=== PATIENT | female | born 1935 | race Caucasian/White ===

== ENCOUNTER → 2017-12-03 11:37 | Outpatient (CLI) | payer MEDICARE, SELFPAY ==
[2017-12-03 14:27] LABS: Absolute Lymphocyte Count 2.28 X10^3/ul (0.83-4.51); Absolute Neutrophil Count 3.3 X10^3/uL (2.0-7.7); Basophil# 0.08 X10^3/uL; Basophil% 1.2 % (0-1); Eosinophils% 3.1 % (0-5); Hematocrit 42.2 % (37-47); Hemoglobin 13.7 g/dl (12.0-15.0); Lymphocyte # 2.28 X10^3/ul (4.0); Lymphocyte % 35.5 % (19-41); Mean Corp Hgb Conc 32.5 g/gl (32-36); Mean Corpuscular Hgb 32.4 pg (27.0-32.0); Mean Corpuscular Volume 99.8 fL (81-99); Mean Platelet Vol. 9.9 fl (6.2-12.0); Monocyte# 0.52 X10^3/uL; Monocyte% 8.1 % (0-10); Neutrophil # 3.33 X10^3/uL (2.7-7.7); Neutrophil % 51.9 % (47-70); Platelet Count 254 K/mm3 (150-450); RBC Distribution Width CV 12.1 % (11.6-14.6); RBC Distribution Width SD 44.2 fl (35.1-43.9); Red Blood Count 4.23 M/mm3 (4.2-5.4); White Blood Count 6.4 K/mm3 (4.4-11.0)
[2017-12-03 14:28] LABS: POSITIVE COUNT NO; POSITIVE DIFFERENTIAL NO; POSITIVE MORPHOLOGY NO
[2017-12-03 14:40] LABS: Vitamin D,25 Hydroxy 25.4 ng/mL (29.95-100.01)
[2017-12-03 14:46] LABS: ALB/GLOB Ratio 1.2 RATIO (0.9-2.4); AST(SGOT) 23 U/L (15-37); Alanine Aminotransfer ALT/SGPT 23 U/L (13-56); Albumin, Serum 3.9 g/dL (3.2-5.0); Alkaline Phosphatase 81 U/L (45-117); Anion Gap 6 (5-15); BUN 18 mg/dL (7-18); BUN/Creat Ratio 19.2 RATIO (10-20); Calcium,Total 8.6 mg/dL (8.5-10.1); Chloride 107 mmol/L (98-107); Cholesterol 257 mg/dL (200); Creatinine, Serum 0.94 mg/dL (0.55-1.02); EST Glomerular Filtration Rate 61 mL/min (>60); Est Glom Filt Rate - Afr Amer 74 mL/min (>60); Globulin 3.3 g/dL (2.2-4.2); Glucose 89 mg/dL (74-106); High Density Lipoprotein 67 mg/dL; Potassium 4.3 mmol/L (3.5-5.1); Protein, Total 7.2 g/dL (6.4-8.2); Sodium Level 138 mmol/L (136-145); Thyroid Stim Hormone (TSH) 1.36 uIU/mL (0.358-3.74); Triglycerides 155 mg/dL; Very Low Density Lipoprotein 31 mg/dL (5-40)
== END ==
PROVIDERS: Family Provider Family Medicine; PCP Family Medicine; Visit Provider Family Medicine
DX: E78.5 Hyperlipidemia, unspecified (principal); M85.80 Other specified disorders of bone density and structure, unspecified site; F32.9 Major depressive disorder, single episode, unspecified
CPT/HCPCS: 36415; 80053; 80061; 82306; 84443; 85025

== ENCOUNTER 2018-03-15 11:30 | Outpatient (RCR) | payer MEDICARE, SELFPAY ==
--- NOTE | 2018-03-02 11:31 | HP.PTEVAL_ITS ---
Patient's Visit Information DANYELLE ZULUAGA is a 82 year old F referred to Physical Therapy by Lelo Stark MD with a diagnosis of gait instability. Date of Evaluation: 03/02/18 Physical Therapist: Soila Reilly - Visit Plan Frequency: 2x /Week Duration: 6 Weeks Plan: 2X/ week 4-6 weeks for testing on the NeuroCOm, high level functional balance such as walking with head turns, curb steps, quick turns, LE strengthening, stretching of gastroc - Subjective Subjective: Pt reports that just lost her balance and stumbled and it was hard to get up. On she stumbled on a piece of kyle and had a broken foot and some sprained ribs. She has a fear of falling. She does not walk well cause she always has this fear that she is going to fall. It is ok to walk in parking lots and she is fearful and then legs dont work so well. She does not use a cane. She feels like her legs are weak. She is able to get out of the chair without arms with some difficulty. SHe can;t get out of a soft chair without the use of her arms. No dizziness. She has no anxiety in general. She likes to go shopping, movies and out to eat for fun. She still does things and still drives. Does have basement stairs with a railing to do laundry. - Objective Gait: walks with decrease heel to toe gait pattern, stiff knees, and wider VAL. LE MMT: B hip flex 4-/5, B hip abd 4-/5, B knee ext 4-/5, B knee flex 3+/ 5. Tight B HS and gastroc B. FGA 20/30. Able to get up out of a chair without the arms with some effort. Curb step up...hesitation and needed min A. Stairs: up and down recip with a rail (some hesitation descending the steps) - Balance Scores Functional Gait Assessment Score: 20 % Disability: 33.3400 - Goals Goal 1:: I HEP Goal Time Frame: 2 Weeks Goal 2:: Test Pt on the NeuroCom Goal Time Frame: 2 Weeks Goal 3:: Increase LE strength by 1/2 muscle grade (at time of eval: LE MMT: B hip flex 4-/5, B hip abd 4-/5, B knee ext 4-/5, B knee flex 3+/5) Goal Time Frame: 4-6 Weeks Goal 4:: Increase FGA by 5 points to 25 Goal Time Frame: 4-6 Weeks - Rehabilitation Potential Rehabilitation Potential: Good - Anticipated Interventions Patient/Client Instruction: Educate patient on: Condition, Plan of Care For the Purpose of:: To increase ROM, To improve muscle performance and motor function, To improve ability to perform ADL's, To increase tolerance to activity /condition/position, To improve gait and locomotor functions, To increase flexibility/ROM, To improve balance, To improve safety with gait Therapeutic Exercise to Include: Strength training, Balance training, Postural training, Flexibilty training, Gait and locomotor training, via Neurocom Balance Mas, Passive ROM For the Purpose of:: To increase ROM, To improve nutrient delivery to tissue, To improve muscle performance and motor function, To improve ability to perform ADL's, To increase tolerance to activity/condition/position, To improve ability of physical actions for home/community/work/leisure, To improve gait and locomotor functions, To improve health of tissue, To decrease soft tissue restriction, To increase flexibility/ROM, To improve balance, To improve safety with gait Functional Training to Include: Gait training For the Purpose of:: To improve gait and locomotor functions, To improve balance , To improve safety with gait Thank you for the opportunity to evaluate your patient. For Medicare and Medicare HMO plans, please review the plan of care and approve it. It will need to be FAXED BACK to us at [phone] for Medicare purposes. Please let me know if there are questions or concerns regarding this plan of care. Physician Signature: Date:
--- NOTE | 2018-03-11 10:49 | HP.PTCOM ---
PT Communication Note 03/11/[address] Lelo Stark MD , Thank you for the referral of Michaela Srivastava to our clinic. She was tested on our IsoPlexisom Balance Machine today and enclosed are her test results. Overall she did very well. On the Sensory Organization (SOT) Test she had good use of her somatosensory system and visual system. She had poor use of her vestibular system to help her maintain her balance. Her center of gravity alignment was normal as was her strategy analysis of ankle dominance. On the Motor Control Test (MCT) her overall reaction time was within normal limits. Her Limits of stability on the Limits of Stability Test (LOS) was also within normal limits. At this point in time we will see the pt 1X/ week for 2-3 weeks to work on the vestibular inputs as well as give a HEP for LE strengthening. Sincerely, Soila Reilly Contact Information
--- NOTE | 2018-03-11 10:53 | HP.PTCOM_ITS ---
PT Communication Note 03/11/[address] Lelo Stark MD , Thank you for the referral of Michaela Srivastava to our clinic. She was tested on our IMASTEom Balance Machine today and enclosed are her test results. Overall she did very well. On the Sensory Organization (SOT) Test she had good use of her somatosensory system and visual system. She had poor use of her vestibular system to help her maintain her balance. Her center of gravity alignment was normal as was her strategy analysis of ankle dominance. On the Motor Control Test (MCT) her overall reaction time was within normal limits. Her Limits of stability on the Limits of Stability Test (LOS) was also within normal limits. At this point in time we will see the pt 1X/ week for 2-3 weeks to work on the vestibular inputs as well as give a HEP for LE strengthening. Sincerely, Soila Reilly Contact Information
--- NOTE | 2018-03-15 12:05 | HP.PTDCSUM ---
HP - PT D/C Summary It has been my pleasure to treat DANYELLE ZULUAGA under orders from Leol Stark MD, for the diagnosis of gait instability for a total of 4 visit(s). Discharge Date: Please see the following information for a summary of their discharge status. - Subjective Subjective: Pt reports that she does have a fear of falling and gets nervouse with curb steps and grades - Objective Objective/Function: Pt felt she could raise her toes a lot easier after slant board and step stretch. Pt did not have any LOB on grades or curb steps but did have some hesitency - Goals Goal 1:: I HEP Goal 2:: Test Pt on the NeuroCom Goal 3:: Increase LE strength by 1/2 muscle grade (at time of eval: LE MMT: B hip flex 4-/5, B hip abd 4-/5, B knee ext 4-/5, B knee flex 3+/5) Goal 4:: Increase FGA by 5 points to 25 - Plan Plan: 1X/ week for 2 weeks for HEP for LE strengthening and training in clinic for vestibular inputs, curb steps, walking with head turns etc. - D/C Information If there are questions or concerns regarding this patient's physical therapy, please feel free to call me at [phone]. Thank you for the referral of this patient. Sincerely, Soila Reilly
== END 2018-03-15 19:00 | disposition home or self-care (01) ==
LOC: PT 11:30
PROVIDERS: Family Provider Family Medicine; PCP Family Medicine; Visit Provider Family Medicine
DX: R26.9 Unspecified abnormalities of gait and mobility (principal)
CPT/HCPCS: 97110; 97161; 97750

== ENCOUNTER → 2018-05-24 10:53 | Outpatient (CLI) | payer MEDICARE, SELFPAY ==
--- NOTE | 2018-05-24 10:59 | BD_ITS ---
STUDY: DUAL ENERGY X-RAY ABSORPTIOMETRY / DXA REASON FOR EXAM: Female, 82 years old. The patient is postmenopausal. Loss of height. TECHNIQUE: Bone Mineral Density (BMD) measurements of lumbar spine and bilateral hips were obtained. COMPARISON: Comparison is made with prior study dated September 01, 2011. FINDINGS: Lumbar Spine (L1-L4): g/cm2 (1.026) / T-score (-1.3) / Z-score (0.6) Findings are suggestive of osteopenia with a moderate fracture risk. Left Femur Total: g/cm2 (0.802) / T-score (-1.6) / Z-score (0.4) Left Femoral Neck: g/cm2 (0.690) / T-score (-2.5) / Z-score (-0.3) Right Femur Total: g/cm2 (0.807) / T-score (-1.6) / Z-score (0.4) Right Femoral Neck: g/cm2 (0.715) / T-score (-2.3) / Z-score (0.2) The T-Scores on the most recent prior examination were: Lumbar Spine (L1-L4): There has been worsening of bone density since the previous examination. Left Femur Total: which represents a worsening of 0.9%. Right Femur Total: which represents a worsening of 3.1%. BD/Dexa Bone Density Study IMPRESSION: The patient is considered osteopenic as outlined below according to World Carlos Organization (WHO) criteria with a moderate fracture risk. There has been worsening of bone density since the previous examination. Reference Information: The T-score is the number of standard deviations above or below the standard which is normal for young adults at their peak bone mineral density. The World Health Organization (WHO) interprets the T-scores as follows: Above -1 Normal bone density Between -1 and -2.5 Osteopenia Equal to / or below -2.5 Osteoporosis As a practical clinical guideline, osteopenia may be graded as follows: Mild -1 through -1.5 Moderate -1.6 through -2.0 Severe -2.1 through -2.4 The Z-score is the number of standard deviations above or below age-matched controls. A Z-score of less than -1.5 would be considered abnormal. References: 1. NIH Osteoporosis and Related Bone Diseases http://www.osteo.org 2. International Society for Clinical Densitometry http://www.iscd.org 3. National Osteoporosis Foundation http://www.nof.org Electronically Signed: Kalyan Cha MD at 15:49 EDT Tel [phone], Service support ,
== END ==
PROVIDERS: Family Provider Family Medicine; PCP Family Medicine; Visit Provider Family Medicine
DX: M85.80 Other specified disorders of bone density and structure, unspecified site (principal); Z78.0 Asymptomatic menopausal state
CPT/HCPCS: 77080

== ENCOUNTER → 2018-06-10 09:58 | Outpatient (CLI) | payer MEDICARE, SELFPAY ==
--- NOTE | 2018-06-10 10:00 | BI_ITS ---
MAMMOGRAPHY - BILATERAL SCREENING REASON FOR EXAM: Female, 82 years old. Routine annual screening examination. PERTINENT HISTORY: Non-contributory. TECHNIQUE: Digital bilateral breast celestino (3D mammographic acquisition) in the CC and MLO projections. 2-D mediolateral oblique (MLO) and craniocaudad (CC) views of both breasts were obtained. CAD: Full Field Digital Mammography with Computer Added Detection was performed. COMPARISON: Comparison is made with prior examination dated May 06, 2017 and March 03, 2016. FINDINGS: Breast Composition: There are scattered areas of fibroglandular density. There are no dominant masses or suspicious calcifications. Stable benign-appearing bilateral axillary lymph nodes. No other significant abnormalities are identified. There has been no significant change since the prior study. BI/SCREENING MAMM (CAD), BILAT IMPRESSION: Stable bilateral screening mammogram. Yearly follow-up mammogram recommended. (A) ASSESSMENT CATEGORY: BIRADS Category 1: Negative. A letter regarding these results will be sent to the patient by the facility within 30 days. Approximately 10% of breast cancers are not detected by mammography. A normal mammogram should not delay biopsy of a clinically suspicious abnormality. [id number] Electronically Signed: Kalyan Cha MD at 12:35 EDT Tel [phone], Service support ,
== END ==
PROVIDERS: Family Provider Family Medicine; PCP Family Medicine; Visit Provider Family Medicine
DX: Z12.31 Encounter for screening mammogram for malignant neoplasm of breast (principal)
CPT/HCPCS: 77063; 77067

== ENCOUNTER → 2018-12-06 | Outpatient (CLI) | payer MEDICARE, SELFPAY ==
[2018-12-06 12:35] LABS: Absolute Lymphocyte Count 1.96 X10^3/ul (0.83-4.51); Absolute Neutrophil Count 4.1 X10^3/uL (2.0-7.7); Basophil# 0.05 X10^3/uL; Basophil% 0.7 % (0-1); Eosinophil# 0.15 X10^3/uL; Eosinophils% 2.2 % (0-5); Hematocrit 40.5 % (37-47); Hemoglobin 13.8 g/dl (12.0-15.0); Lymphocyte # 1.96 X10^3/ul (4.0); Lymphocyte % 28.6 % (19-41); Mean Corp Hgb Conc 34.1 g/gl (32-36); Mean Corpuscular Volume 96.9 fL (81-99); Mean Platelet Vol. 10.1 fl (6.2-12.0); Monocyte# 0.63 X10^3/uL; Monocyte% 9.2 % (0-10); Neutrophil # 4.05 X10^3/uL (2.7-7.7); Neutrophil % 59.2 % (47-70); Platelet Count 271 K/mm3 (150-450); RBC Distribution Width SD 41.5 fl (35.1-43.9); Red Blood Count 4.18 M/mm3 (4.2-5.4); White Blood Count 6.9 K/mm3 (4.4-11.0)
[2018-12-06 12:37] LABS: POSITIVE COUNT NO; POSITIVE DIFFERENTIAL NO; POSITIVE MORPHOLOGY NO
[2018-12-06 13:22] LABS: ALB/GLOB Ratio 1.3 RATIO (0.9-2.4); AST(SGOT) 22 U/L (15-37); Alanine Aminotransfer ALT/SGPT 24 U/L (13-56); Albumin, Serum 3.9 g/dL (3.2-5.0); Alkaline Phosphatase 91 U/L (45-117); Anion Gap 8 (5-15); BUN 15 mg/dL (7-18); BUN/Creat Ratio 17.6 RATIO (10-20); Calcium,Total 8.8 mg/dL (8.5-10.1); Chloride 104 mmol/L (98-107); Cholesterol 234 mg/dL (200); Creatinine, Serum 0.85 mg/dL (0.55-1.02); EST Glomerular Filtration Rate 68 mL/min (>60); Est Glom Filt Rate - Afr Amer 82 mL/min (>60); Globulin 2.9 g/dL (2.2-4.2); Glucose 89 mg/dL (74-106); High Density Lipoprotein 64 mg/dL; Potassium 4.2 mmol/L (3.5-5.1); Protein, Total 6.8 g/dL (6.4-8.2); Sodium Level 137 mmol/L (136-145); Thyroid Stim Hormone (TSH) 1.56 uIU/mL (0.358-3.74); Triglycerides 143 mg/dL; Very Low Density Lipoprotein 29 mg/dL (5-40)
== END | disposition home or self-care (01) ==
LOC: MFPLAB 10:37
PROVIDERS: Family Provider Family Medicine; PCP Family Medicine; Referring Provider Family Medicine; Visit Provider Family Medicine
DX: E78.5 Hyperlipidemia, unspecified (principal); F32.9 Major depressive disorder, single episode, unspecified; K21.9 Gastro-esophageal reflux disease without esophagitis
CPT/HCPCS: 36415; 80053; 80061; 84443; 85025

== ENCOUNTER → 2019-07-25 11:35 | Outpatient (CLI) | payer MEDICARE, SELFPAY ==
--- NOTE | 2019-07-25 11:38 | BI_ITS ---
MAMMOGRAPHY - BILATERAL SCREENING REASON FOR EXAM: Female, 83 years old. Routine annual screening examination. PERTINENT HISTORY: Non-contributory. TECHNIQUE: Digital bilateral breast catalina (3D mammographic acquisition) in the CC and MLO projections. 2-D mediolateral oblique (MLO) and craniocaudad (CC) views of both breasts were obtained. CAD: Full Field Digital Mammography with Computer Added Detection was performed. COMPARISON: Comparison is made with prior study June 10, 2018 and May 06, 2017. FINDINGS: Breast Composition: There are scattered areas of fibroglandular density. There are no dominant masses or suspicious calcifications. Stable benign-appearing bilateral axillary lymph. No other significant abnormalities are identified. There has been no significant change since the prior study. BI/SCREEN MAMM (CAD) W/CATALINA BILAT IMPRESSION: Stable bilateral screening mammogram. Yearly follow-up mammogram recommended. (A) ASSESSMENT CATEGORY: BIRADS Category 2: Benign. A letter regarding these results will be sent to the patient by the facility within 30 days. Approximately 10% of breast cancers are not detected by mammography. A normal mammogram should not delay biopsy of a clinically suspicious abnormality. [id number] Electronically Signed: Kalyan Cha, at 13:05 EST , Service support ,
== END ==
PROVIDERS: Family Provider Family Medicine; PCP Family Medicine; Referring Provider Family Medicine; Visit Provider Family Medicine
DX: Z12.31 Encounter for screening mammogram for malignant neoplasm of breast (principal)
CPT/HCPCS: 77063; 77067

== ENCOUNTER → 2020-01-30 14:54 | Outpatient (CLI) | payer MEDICARE, SELFPAY ==
[2020-01-30 17:43] LABS: Absolute Lymphocyte Count 1.94 X10^3/uL (0.83-4.51); Basophil# 0.11 X10^3/uL; Basophil% 1.9 % (0-1); Eosinophil# 0.15 X10^3/uL; Eosinophils% 2.6 % (0-5); Hematocrit 41.4 % (37-47); Hemoglobin 13.4 g/dL (12.0-15.0); Lymphocyte # 1.94 X10^3/ul (4.0); Lymphocyte % 33.8 % (19-41); Mean Corp Hgb Conc 32.4 g/dL (32-36); Mean Corpuscular Hgb 32.6 pg (27.0-32.0); Mean Corpuscular Volume 100.7 fL (81-99); Mean Platelet Vol. 9.7 fl (6.2-12.0); Monocyte# 0.57 X10^3/uL; Monocyte% 9.9 % (0-10); NRBC Flagged by Analyzer 0 % (0-5); Neutrophil # 2.96 X10^3/uL (2.7-7.7); Neutrophil % 51.6 % (47-70); Platelet Count 275 K/mm3 (150-450); RBC Distribution Width CV 12.1 % (11.6-14.6); RBC Distribution Width SD 44.7 fl (35.1-43.9); Red Blood Count 4.11 M/mm3 (4.2-5.4); White Blood Count 5.7 K/mm3 (4.4-11.0)
[2020-01-30 17:54] LABS: Magnesium 2.2 mg/dL (1.6-2.6); Thyroid Stim Hormone (TSH) 1.55 uIU/mL (0.358-3.74)
== END ==
PROVIDERS: PCP Family Medicine; Referring Provider Family Medicine; Visit Provider Family Medicine
DX: F32.9 Major depressive disorder, single episode, unspecified (principal); K21.9 Gastro-esophageal reflux disease without esophagitis
CPT/HCPCS: 36415; 83735; 84443; 85025

== ENCOUNTER → 2020-06-03 15:05 | Outpatient (CLI) | payer MEDICARE, SELFPAY ==
--- NOTE | 2020-06-03 15:09 | RAD_ITS ---
HISTORY: right hip pain ADDITIONAL HISTORY: None provided. EXAMINATION/TECHNIQUE: XR Hip Unilateral with Pelvis when performed; 2-3 Views Right Number of images including paperwork: 3 COMPARISON: None FINDINGS: BONES: No acute fracture. JOINTS: No subluxation. Mild joint space narrowing of the hips. Mild degenerative changes of the sacroiliac joints and symphysis pubis. SOFT TISSUES: No distinct foreign body. RAD/HIP, UNI W/ Pelvis 2-3 Views IMPRESSION: No acute osseous abnormality. Mild degenerative changes. at 2241 Reported and signed by: Leola Astorga MD Electronically Signed: Leola Astorga MD at 22:41 EDT Tel , Service support ,
== END ==
LOC: MTLAB 15:07 → MTRAD 15:07
PROVIDERS: PCP Family Medicine; Referring Provider Family Medicine; Visit Provider Family Medicine
DX: M25.551 Pain in right hip (principal)
CPT/HCPCS: 73502

== ENCOUNTER 2020-09-19 09:23 | Outpatient (RCR) | payer MEDICARE, SELFPAY | END 2020-09-19 23:59 | LOC: IMMUN 09:23 | PROVIDERS: PCP Family Medicine; Visit Provider Family Medicine | DX: Z23 Encounter for immunization (principal) | CPT/HCPCS: 0011A; 0012A; 91301 ==

== ENCOUNTER → 2020-09-27 10:52 | Outpatient (CLI) | payer MEDICARE, SELFPAY ==
--- NOTE | 2020-09-27 10:53 | BI_ITS ---
MAMMOGRAPHY - BILATERAL SCREENING REASON FOR EXAM: Female, 84 years old. Routine annual screening examination. PERTINENT HISTORY: Non-contributory. TECHNIQUE: Digital bilateral breast catalina (3D mammographic acquisition) in the CC and MLO projections. 2-D mediolateral oblique (MLO) and craniocaudad (CC) views of both breasts were obtained. CAD: Full Field Digital Mammography with Computer Added Detection was performed. COMPARISON: Comparison is made with prior study dated 07/25/2019 and 06/10/2018. FINDINGS: Breast Composition: The breasts are almost entirely fatty. There are no dominant masses or suspicious calcifications. Stable small benign appearing bilateral axillary lymph nodes. No other significant abnormalities are identified. There has been no significant change since the prior study. BI/SCRN MAMM (CAD)W/CATALINA BILAT IMPRESSION: Stable bilateral screening mammogram. Yearly follow-up mammogram recommended. (A) ASSESSMENT CATEGORY: BIRADS Category 2: Benign. A letter regarding these results will be sent to the patient by the facility within 30 days. Approximately 10% of breast cancers are not detected by mammography. A normal mammogram should not delay biopsy of a clinically suspicious abnormality. [id number] Electronically Signed: Kalyan Cha MD at 12:24 EST , Service support ,
== END ==
PROVIDERS: PCP Family Medicine; Referring Provider Family Medicine; Visit Provider Family Medicine
DX: Z12.31 Encounter for screening mammogram for malignant neoplasm of breast (principal)
CPT/HCPCS: 77063; 77067

== ENCOUNTER → 2021-01-07 10:42 | Outpatient (CLI) | payer MEDICARE, SELFPAY ==
--- NOTE | 2021-01-07 10:44 | RAD_ITS ---
STUDY: X-RAY - RIGHT KNEE REASON FOR EXAM: Female, 85 years old. PAIN TECHNIQUE: 4 view(s) of the knee. COMPARISON: None. FINDINGS: Normal visualized distal femur. Normal visualized proximal tibia and fibula. Normal proximal tibiofibular articulation. There is mild degenerative arthrosis of the medial femorotibial compartment. There is mild degenerative arthrosis of the lateral femorotibial compartment. There is mild degenerative arthrosis of the patellofemoral articulation. The soft tissue structures are unremarkable. RAD/Knee 4 or More Views IMPRESSION: Degenerative arthrosis. Electronically Signed: Rasta Obando MD at 11:10 EDT , Service support ,
== END ==
PROVIDERS: PCP Family Medicine; Referring Provider Family Medicine; Visit Provider Family Medicine
DX: M25.561 Pain in right knee (principal)
CPT/HCPCS: 73564

== ENCOUNTER → 2021-03-07 14:18 | Outpatient (CLI) | payer MEDICARE, SELFPAY ==
[2021-03-07 16:12] LABS: AST(SGOT) 20 U/L (15-37); Alanine Aminotransfer ALT/SGPT 21 U/L (13-56); Anion Gap 6 (5-15); BUN 21 mg/dL (7-18); Calcium,Total 8.6 mg/dL (8.5-10.1); Chloride 103 mmol/L (98-107); Cholesterol 239 mg/dL (200); Creatinine, Serum 1.05 mg/dL (0.55-1.02); EST Glomerular Filtration Rate 53 mL/min (>60); Est Glom Filt Rate - Afr Amer 64 mL/min (>60); Glucose 108 mg/dL (74-106); High Density Lipoprotein 64 mg/dL; Potassium 4.1 mmol/L (3.5-5.1); Sodium Level 137 mmol/L (136-145); Thyroid Stim Hormone (TSH) 1.74 uIU/mL (0.358-3.74); Triglycerides 207 mg/dL; Very Low Density Lipoprotein 41 mg/dL (5-40)
== END ==
PROVIDERS: PCP Family Medicine; Visit Provider Family Medicine
DX: E78.5 Hyperlipidemia, unspecified (principal); F41.9 Anxiety disorder, unspecified
CPT/HCPCS: 36415; 80048; 80061; 84443; 84450; 84460

== ENCOUNTER 2021-09-01 16:21 | Outpatient (CLI) | payer MEDICARE, SELFPAY ==
--- NOTE | 2021-09-01 16:35 | RAD_ITS ---
EXAM: XR CHEST, 2 VIEWS : 1935 CLINICAL INDICATION: COUGH TECHNIQUE: Frontal and lateral views of the chest. This report was created using [employer] report generation technology. COMPARISON: 07/22/2015 FINDINGS: LUNGS AND PLEURAL SPACES: Unremarkable. No consolidation or edema. No pneumothorax. No effusion. HEART: Unremarkable. Cardiac silhouette not enlarged. MEDIASTINUM: Central airways and mediastinal contour are unremarkable. BONES/JOINTS: Unremarkable. SOFT TISSUES: Unremarkable. RAD/Chest PA and Lateral IMPRESSION: No radiographic evidence of acute cardiopulmonary disease. at 2304 Reported and signed by: Alvaor Crespo MD Electronically Signed: Alvaro Crespo MD at 23:02 EST Tel , Service support ,
[2021-09-01 17:49] LABS: Absolute Lymphocyte Count 1.93 X10^3/uL (0.83-4.51); Absolute Neutrophil Count 6.2 X10^3/uL (2.0-7.7); Basophil# 0.11 X10^3/uL; Basophil% 1.2 % (0-1); Eosinophil# 0.11 X10^3/uL; Eosinophils% 1.2 % (0-5); Hematocrit 36.1 % (37-47); Lymphocyte # 1.93 X10^3/ul (0.83-4.51); Mean Corp Hgb Conc 33.2 g/dL (32-36); Mean Corpuscular Hgb 32.4 pg (27.0-32.0); Mean Corpuscular Volume 97.6 fL (81-99); Mean Platelet Vol. 9.8 fl (6.2-12.0); Monocyte# 0.82 X10^3/uL; Monocyte% 8.9 % (0-10); NRBC Flagged by Analyzer 0 % (0-5); Neutrophil # 6.16 X10^3/uL (2.7-7.7); Neutrophil % 67.3 % (47-70); Platelet Count 366 K/mm3 (150-450); RBC Distribution Width CV 11.9 % (11.6-14.6); RBC Distribution Width SD 43.4 fl (35.1-43.9); White Blood Count 9.2 K/mm3 (4.4-11.0)
[2021-09-01 18:16] LABS: ALB/GLOB Ratio 0.9 RATIO (0.9-2.4); AST(SGOT) 19 U/L (15-37); Alanine Aminotransfer ALT/SGPT 26 U/L (13-56); Albumin, Serum 3.4 g/dL (3.2-5.0); Alkaline Phosphatase 83 U/L (45-117); Anion Gap 9 (5-15); BUN 16 mg/dL (7-18); BUN/Creat Ratio 19.1 RATIO (10-20); Chloride 102 mmol/L (98-107); Creatinine, Serum 0.84 mg/dL (0.55-1.02); EST Glomerular Filtration Rate 69 mL/min (>60); Est Glom Filt Rate - Afr Amer 84 mL/min (>60); Globulin 3.6 g/dL (2.2-4.2); Glucose 109 mg/dL (74-106); Potassium 3.9 mmol/L (3.5-5.1); Sodium Level 139 mmol/L (136-145)
== END 2021-09-01 23:59 | disposition short-term general hospital (02) ==
LOC: MTLAB 16:23
PROVIDERS: PCP Family Medicine; Referring Provider Family Medicine; Visit Provider Family Medicine
DX: R05.9 Cough, unspecified (principal); R53.81 Other malaise; R53.83 Other fatigue
CPT/HCPCS: 36415; 71046; 80053; 85025

== ENCOUNTER → 2022-01-15 | Outpatient (CLI) | payer MEDICARE, SELFPAY ==
--- NOTE | 2022-01-15 13:15 | BI_ITS ---
MAMMOGRAPHY - BILATERAL SCREENING REASON FOR EXAM: Female, 86 years old. Routine annual screening examination. PERTINENT HISTORY: Non-contributory. TECHNIQUE: Digital bilateral breast catalina (3D mammographic acquisition) in the CC and MLO projections. 2-D mediolateral oblique (MLO) and craniocaudad (CC) views of both breasts were obtained. CAD: Full Field Digital Mammography with Computer Added Detection was performed. COMPARISON: Screening mammogram from 09/27/2020, 07/25/2019, 06/10/2018, 05/06/2017. FINDINGS: Breast Composition: There are scattered areas of fibroglandular density. There are no dominant masses or suspicious calcifications. Stable small benign-appearing lymph nodes. No other significant abnormalities are identified. There has been no significant change since the prior study. BI/SCRN MAMM (CAD)W/CATALINA BILAT IMPRESSION: Stable bilateral screening mammogram. Yearly follow-up mammogram recommended. (A) ASSESSMENT CATEGORY: BIRADS Category 2: Benign. A letter regarding these results will be sent to the patient by the facility within 30 days. Approximately 10% of breast cancers are not detected by mammography. A normal mammogram should not delay biopsy of a clinically suspicious abnormality. [id number] Electronically Signed: Daquan Gonzales, at 8:27 EDT ,
== END | disposition home or self-care (01) ==
LOC: OPBI 13:07
PROVIDERS: PCP Family Medicine; Visit Provider Family Medicine
DX: Z12.31 Encounter for screening mammogram for malignant neoplasm of breast (principal)
CPT/HCPCS: 77063; 77067

== ENCOUNTER → 2022-05-19 | Outpatient (CLI) | payer MEDICARE, SELFPAY ==
--- NOTE | 2022-05-19 16:06 | RAD_ITS ---
STUDY: X-RAY - PELVIS AND RIGHT HIP REASON FOR EXAM: Right hip pain. TECHNIQUE: 2 views of the pelvis and hip. COMPARISON: Radiographs 05/24/2020. FINDINGS: There is vascular calcification. Normal bilateral iliac wings, sacroiliac joints and visualized sacrum. Normal bilateral superior and inferior pubic rami. Normal pubic symphysis. Normal bilateral ischial tuberosities. Normal visualized femoral head. Normal acetabulum. There is mild joint space narrowing of the right superior medial hip articulation. RAD/HIP, UNI W/ Pelvis 2-3 Views IMPRESSION: Mild right hip arthrosis, unchanged since the prior study. Electronically Signed: Cosmo Riggs MD at 13:17 EDT ,
--- NOTE | 2022-05-19 16:07 | RAD_ITS ---
STUDY: X-RAY - LUMBAR SPINE REASON FOR EXAM: Female, 86 years old. Back pain. TECHNIQUE: 5 view(s) of the lumbar spine were obtained. COMPARISON: None FINDINGS: Osteopenia. Normal lumbar lordosis. There is no substantial scoliosis. 8 mm of anterolisthesis of L4 on L5. Diffuse facet sclerosis. End plate concavities compatible with osteoporosis. Diffuse intervertebral disc space narrowing with osteophytes. Moderate vascular calcification. RAD/L/S Spine Min 4 Views IMPRESSION: Osteopenia with findings compatible with osteoporosis. Diffuse mild lumbosacral spondylosis. No acute abnormality, evidence of erosive changes or fusion. Electronically Signed: Skyler Verde, at 10:02 EDT ,
== END | disposition home or self-care (01) ==
LOC: MTRAD 16:05
PROVIDERS: PCP Family Medicine; Referring Provider Family Medicine; Visit Provider Family Medicine
DX: M25.551 Pain in right hip (principal)
CPT/HCPCS: 72110; 73502

== ENCOUNTER 2022-05-28 11:07 | Observation (INO) | payer MEDICARE, SELFPAY ==
[2022-05-28 11:08] VITALS: BP 177/85; PULSE 77; RESP 18; TEMP 36.6; O2SAT 99; BMI 30.1
[2022-05-28 13:14] LABS: Bacteria 0 SEEN /hpf (None Seen); Mucous, Urine 0 SEEN /hpf (<or=2+); Squamous Epithelial Cells - UA 0 SEEN /hpf (5-10)
--- NOTE | 2022-05-28 13:18 | CT_ITS ---
STUDY: CT ABDOMEN AND PELVIS WITH CONTRAST REASON FOR EXAM: Female, 86 years old. 10 day history of back pain. Spondylolisthesis at the L4-L5 level. RADIATION DOSAGE (If Supplied By Facility): CTDIvol = ( 19.62 ) mGy, DLP = ( 947.09 ) mGycm TECHNIQUE: Transaxial images were obtained from the dome of the diaphragm to the symphysis pubis without oral contrast. IV 100mL Isovue-[id number] was administered. Sagittal and coronal images were reconstructed. Individualized dose optimization techniques were used for this CT. COMPARISON: None. FINDINGS: Mild degree of increased markings at the lung bases suggestive of bibasilar atelectasis and/or scarring. Coronary artery calcification. There is decreased attenuation of the liver consistent with steatosis. There is a 2.6 cm x 2.7 cm cyst in the inferior aspect of the left lobe of the liver. Normal gallbladder and extrahepatic biliary system. Normal spleen. Mild degree of increased markings in the region of the head of the pancreas. Localized pancreatitis should BE ruled out. Clinical correlation is recommended. Normal bilateral adrenal glands. Normal right kidney. There is a 5.4 mm cyst in the anterior aspect of the left kidney. There is a small hiatal hernia. Normal small intestine. There are multiple colonic diverticula consistent with diverticulosis. The appendix is visualized and appears normal. There is diffuse atherosclerotic calcification of the abdominal aorta, without a demonstrated aneurysm. Normal inferior vena cava. There is borderline retroperitoneal lymphadenopathy with enlarged nodes no greater than 10mm in the short axis diameter. Normal urinary bladder. There is absence of the uterus consistent with a prior hysterectomy. Normal abdominal wall. There are mild degenerative changes of the visualized lumbar spine. Grade 1 anterior listhesis of L4 on L5 without spondylolysis. Loss of height of the L1 vertebrae. CT/Abdomen/Pelvis W IV Cont ONLY IMPRESSION: Mild degree of increased markings in the peripancreatic fat in the region of the head of the pancreas. Localized pancreatitis should BE ruled out. Spondylolisthesis of L4 on L5 without spondylolysis. Loss of height of the L5 1 vertebrae. Fatty infiltration of the liver. Electronically Signed: Kalyan Cha MD at 15:33 EDT ,
[2022-05-28 13:20] LABS: Color, Urine Yellow (Yellow); Glucose, Dipstick Normal (Normal); Ketone-Dipstick Negative (Negative); Leukocyte Esterase-Dipstick 25 /ul (Negative); Nitrite-Dipstick Negative (Negative); Occult Blood-Urine 25 /ul (Negative); Protein-Dipstick 15 mg/dl (Negative); Urine Bilirubin Dipstick Negative (Negative); Urine Clarity Clear (Clear); Urine Urobilinogen Normal (Normal); Urine pH 6.5 (5.0 - 8.0)
[2022-05-28 13:27] LABS: Red Blood Cells-Urine 0-5 SEEN /hpf (0-5); White Blood Cells 0-5 SEEN /hpf (0-5)
--- NOTE | 2022-05-28 13:27 | EDS_ITS ---
HPI History of Present Illness Chief Complaint: Back Narrative Narrative: Patient with history of pain in trochanteric bursitis bilaterally now developing back pain in the lower back. She is been seen by Dr. Patterson and her primary care for her hip pain. With the back pain Dr. Patterson wanted her to come to the ER for evaluation. She not have any urinary complaints. She is able to urinate and have bowel movements without difficulty. No saddle anesthesia. No direct trauma to the back. She states that the pain gets so bad sometimes that she is going to pass out. She can only walk a few steps. She has not had any falls. Patient states she has not been on anything but Tylenol and ibuprofen for pain because she does not tolerate pain medicine very well. She states that oxycodone made her very confused and she did not want to try this again. No other medications have been tried. PFSH PFS Medical History Greater trochanteric bursitis of left hip Osteoarthritis of left hip Spondylolisthesis at L4-L5 level Home Medications acetaminophen 500 mg tablet (Tylenol Extra Strength) 1,000 mg PO Q6H PRN Back Pain 05/25/22 [History Last Taken 05/28/22] esomeprazole magnesium 20 mg capsule,delayed release (Nexium) 20 mg PO DAILY 05/25/22 [History Last Taken 05/27/22] fluoxetine 40 mg capsule (Prozac) 40 mg PO DAILY 05/25/22 [History Last Taken 05/27/22] ibuprofen 200 mg capsule 200 mg PO Q6H PRN Back Pain 05/25/22 [History Last Taken 05/28/22] Allergy/AdvReac Type Severity Reaction Status Date / Time No Known Allergies Allergy Verified 05/28/22 11:08 Family History Mother CVA (cerebral vascular accident) Father CVA (cerebral vascular accident) Surgical History History of right knee joint replacement Social History household members: none Smoking Status: Former smoker alcohol intake: current alcohol intake frequency: a few times a month ROS ROS ED Review of Systems ROS Unobtainable: Denies due to encephalopathy Constitutional Constitutional ED: Denies chills or fever(s) ENT ENT ED: Denies rhinorrhea or sore throat Cardiovascular Cardiovascular: Denies chest pain or palpitations Respiratory/Chest Respiratory/Chest: Denies dyspnea or dyspnea on exertion Gastrointestinal Gastrointestinal: Denies abdominal pain Genitourinary Genitourinary ED: Denies dysuria or hematuria Musculoskeletal Musculoskeletal: Reports back pain and other Details: Bilateral hip pain Integumentary Denies abscess or Abrasions Neurologic Neurologic: Denies headache(s) or paresthesias Psychiatric Psychiatric: Denies anxiety or depression EXAM Physical Exam Const Vital Signs: 05/28/22 11:08 Temperature 97.9 F Temperature Source Temporal Pulse Rate 77 Respiratory Rate 18 Blood Pressure 177/85 H Blood Pressure Mean 115 Pulse Ox 99 Oxygen Delivery Method Room Air Positive well nourished General Appearance ED: NAD; Negative for pallor HEENT Reports moist mucous membranes Eyes PERRL Resp normal respiratory effort Cardio regular rate and regular rhythm GI normal to inspection, nondistended, normoactive bowel sounds Back/Spine Back/Spine Narrative: Tenderness to palpation left lumbar paraspinal musculature. No midline deformity or step-off. No ecchymosis, rash. Extremity normal to inspection Extremity Narrative: Tenderness to palpation of the bilateral hips. Neuro oriented x3 and no sensory deficits noted Sensorium / Orientation: alert Psych mental status grossly normal Skin no rashes or lesions noted and no wounds General Skin Exam: Negative for jaundice or pallor MDM MDM MDM Narrative Medical decision making narrative: Patient presenting with bilateral hip pain and back pain. This has been an issue for the last 10 days. Prior to this she was doing well. She lives alone but her daughter states she lives nearby and can help her. She is here in the ER today because she wants her pain controlled. I spoke with Dr. Patterson who wanted to check some basic lab work and urinalysis as well as get some imaging of the spine. The patient herself is hesitant to take any pain medication but she does not want to have a reaction that she had before. I did have a long discussion with her and her daughter regarding medication. We will try to see if we can control her pain here in the ER and if her work-up is ultimately normal we will try to get her home versus admitting her for pain control and getting an MRI. She is amenable to taking some Ultram. She was given Zofran empirically so she does not get nauseous. Patient states that this did not control her pain very well. Her CBC and BMP are normal. Urinalysis negative for infection. CT of the abdomen pelvis was performed and does shows spondylolisthesis of L4 on L5 as well as loss of height of L5. There is concern that there might be some inflammation of the peripancreatic region. Patient is not having any pain here. Given that her pain is not improved I will speak to the hospitalist for admission. Impression: 1. Intractable back Lab Data Attestation: I reviewed the patient's lab results. Labs: Laboratory Results - last 24 hr 05/28/22 05/28/22 05/28/22 12:55 14:00 14:00 WBC 10.4 RBC 3.99 L Hgb 13.1 Hct 38.4 MCV 96.2 MCH 32.8 H MCHC 34.1 RDW Std Deviation 42.2 RDW Coeff of Lucila 12.0 Plt Count 279 MPV 9.3 Immature Gran % (Auto) 0.500 Neut % (Auto) 80.8 H Lymph % (Auto) 10.8 L [place] % (Auto) 7.7 Eos % (Auto) 0.0 Baso % (Auto) 0.2 Absolute Neuts (auto) 8.4 H Absolute Lymphs (auto) 1.12 Nucleated RBC % 0 Sodium 137 Potassium 4.0 Chloride 103 Carbon Dioxide 26.0 Anion Gap 8 BUN 23 H Creatinine 0.76 Estim Creat Clear Calc 34.64 Est GFR (MDRD) Af Amer 93 Est GFR (MDRD) Non-Af 77 BUN/Creatinine Ratio 30.3 H Glucose 107 H Calcium 9.0 Urine Color Yellow Urine Clarity Clear Urine pH 6.5 Ur Specific [place] 1.010 Urine Protein 15 H Urine Glucose (UA) Normal Urine Ketones Negative Urine Occult Blood 25 H Urine Nitrite Negative Urine Bilirubin Negative Urine Urobilinogen Normal Ur Leukocyte Esterase 25 H Urine RBC 0-5 SEEN Urine WBC 0-5 SEEN Ur Squamous Epith Cells 0 SEEN Urine Bacteria 0 SEEN Urine Mucus 0 SEEN Radiography Diagnostic Testing: Clinical Impression(s) from Imaging Studies Abdomen/Pelvis CT 05/28/22 13:18 IMPRESSION: Mild degree of increased markings in the peripancreatic fat in the region of the head of the pancreas. Localized pancreatitis should BE ruled out. Spondylolisthesis of L4 on L5 without spondylolysis. Loss of height of the L5 1 vertebrae. Fatty infiltration of the liver. Electronically Signed: Kalyan Cha MD at 15:33 EDT , Discharge Plan Triage Chief Complaint: Back ED Provider: Miguel Angel Oliveira Dx/Rx/DC Orders Prescriptions: No Action esomeprazole magnesium [Nexium] 20 mg capsule,delayed release(DR/EC) 20 mg PO DAILY fluoxetine [Prozac] 40 mg capsule 40 mg PO DAILY acetaminophen [Tylenol Extra Strength] 500 mg tablet 1,000 mg PO Q6H PRN (Reason: Back Pain) ibuprofen 200 mg capsule 200 mg PO Q6H PRN (Reason: Back Pain) Primary Care Provider: Lelo Stark Referrals: Lelo Stark MD [Primary Care Provider] -
[2022-05-28] MEDS: Ondansetron 4 MG/2 ML Vial IV (14:06)
[2022-05-28] MEDS: traMADol 50 MG Tablet PO (14:06)
[2022-05-28 14:15] LABS: Absolute Lymphocyte Count 1.12 X10^3/uL (0.83-4.51); Absolute Neutrophil Count 8.4 X10^3/uL (2.0-7.7); Basophil# 0.02 X10^3/uL; Basophil% 0.2 % (0-1); Hematocrit 38.4 % (37-47); Hemoglobin 13.1 g/dL (12.0-15.0); Lymphocyte # 1.12 X10^3/ul (0.83-4.51); Lymphocyte % 10.8 % (19-41); Mean Corp Hgb Conc 34.1 g/dL (32-36); Mean Corpuscular Hgb 32.8 pg (27.0-32.0); Mean Corpuscular Volume 96.2 fL (81-99); Mean Platelet Vol. 9.3 fl (6.2-12.0); Monocyte% 7.7 % (0-10); NRBC Flagged by Analyzer 0 % (0-5); Neutrophil # 8.41 X10^3/uL (2.7-7.7); Neutrophil % 80.8 % (47-70); Platelet Count 279 K/mm3 (150-450); RBC Distribution Width SD 42.2 fl (35.1-43.9); Red Blood Count 3.99 M/mm3 (4.2-5.4); White Blood Count 10.4 K/mm3 (4.4-11.0)
[2022-05-28 14:40] LABS: Anion Gap 8 (5-15); BUN 23 mg/dL (7-18); BUN/Creat Ratio 30.3 RATIO (10-20); Chloride 103 mmol/L (98-107); Creatinine, Serum 0.76 mg/dL (0.55-1.02); EST Glomerular Filtration Rate 77 mL/min (>60); Est Glom Filt Rate - Afr Amer 93 mL/min (>60); Estimated Creatinine Clearance 34.64 ml/min; Glucose 107 mg/dL (74-106); Sodium Level 137 mmol/L (136-145)
[2022-05-28 15:07] VITALS: BP 168/87
--- NOTE | 2022-05-28 16:49 | PCM.HP.STD ---
HPI - General General Date of Admission: 05/28/22 Date of Service: 05/28/22 Chief Complaint: Back pain, BL hip pain x 10 days. HPI Narrative The patient is an 86 y/o F w/ PMHx: GERD, Anxiety and Depression, Radiculopathy, Obesity, Former tobacco use who presents to the [facility] ED on 05/28/22 with history of ongoing lumbar pain, worse on evaluation to the left paraspinous lumbar with concurrent BL ongoing hip pain with reported recent BL hip outpatient hip injection secondary to patient complaints with ongoing symptoms with evaluation by both her PCP and Orthopedic surgery who recommended she present to the ED for evaluation given ongoing intractable pain despite treatment attempts. Patient reports the pain is a dull aching throb continuously although manageable if she does not move but if she attempts to move or attempts to bear any weight it is severe and rates it 10 out of 10 in severity. She states it is been progressively worsening over the last several days to the point where she cannot walk safely. She did have recent orthopedic surgery evaluation and follow-up and given her ongoing debility they recommended evaluation in the ED. Work-up in the ED included T97.9, heart rate 77, BP 177/85, respiratory rate 18, 99% on room air, CBC with WC 10.4, hemoglobin 13.1, platelet 279 with left shift, BMP with BUN/creat 23/0.76, glucose 107, pending hepatic profile upon requested evaluation of patient, urinalysis with no obvious evidence of UTI, CT abdomen and pelvis with a mild degree of increased markings in the peripancreatic fat in the region of the head of the pancreas, localized pancreatitis should be ruled out, spondylolisthesis of L4 and L5 without spondylosis with loss of height of the L5 first vertebrae, fatty infiltration of the liver. In the ED patient administered tramadol 50 mg p.o. x1 as well as Zofran [address] [facility] Medical History (Updated 05/28/22 @ 18:[address] Hui Bynum MD) Anxiety and depression Former tobacco use GERD (gastroesophageal reflux disease) Obesity Osteoarthritis of left hip Spondylolisthesis at L4-L5 level Home Medications acetaminophen 500 mg tablet (Tylenol Extra Strength) 1,000 mg PO Q6H PRN Back Pain 05/25/22 [History Last Taken 05/28/22] esomeprazole magnesium 20 mg capsule,delayed release (Nexium) 20 mg PO DAILY 05/25/22 [History Last Taken 05/27/22] fluoxetine 40 mg capsule (Prozac) 40 mg PO DAILY 05/25/22 [History Last Taken 05/27/22] ibuprofen 200 mg capsule 200 mg PO Q6H PRN Back Pain 05/25/22 [History Last Taken 05/28/22] Allergy/AdvReac Type Severity Reaction Status Date / Time No Known Allergies Allergy Verified 05/28/22 11:08 Family History Mother CVA (cerebral vascular accident) Father CVA (cerebral vascular accident) Surgical History History of right knee joint replacement Social History (Updated 05/28/22 @ 17:[address] Hui Bynum MD) household members: none Smoking Status: Former smoker how long ago did patient quit smoking: Quit ~ 40 years prior, 1 ppd since teen until quit. alcohol intake: current alcohol intake frequency: a few times a month substance use type: does not use ROS ROS Narrative Admission Review of Systems: CONSTITUTIONAL: No weight loss, fever, chills, + weakness or fatigue. HEENT: Eyes: No visual loss, blurred vision, double vision or yellow sclerae. Ears, Nose, Throat: No hearing loss, sneezing, congestion, runny nose or sore throat. SKIN: No rash or itching, lesions, wounds. CARDIOVASCULAR: No chest pain, chest pressure or chest discomfort, palpitations, edema, orthopnea, syncopal events. RESPIRATORY: No shortness of breath, cough or sputum, wheezing, hemoptysis. GASTROINTESTINAL: No anorexia, nausea, vomiting or diarrhea, abdominal pain, melena, BRBPR. GENITOURINARY: No dysuria, frequency, urgency or retention. NEUROLOGICAL: No headache, dizziness, syncope, paralysis, ataxia, numbness or tingling in the extremities, focal weakness, change in bowel or bladder control, seizure. MUSCULOSKELETAL: + muscle, back pain, joint pain or stiffness. HEMATOLOGIC: No anemia, bleeding or bruising. LYMPHATICS: No enlarged nodes. No history of splenectomy. PSYCHIATRIC: + history of depression or anxiety. ENDOCRINOLOGIC: No reports of sweating, cold or heat intolerance. No polyuria or polydipsia. ALLERGIES: No history of asthma, hives, eczema or rhinitis. Vital Signs Vital Signs Vital Signs: 05/28/22 11:08 Temperature 97.9 F Temperature Source Temporal Pulse Rate 77 Respiratory Rate 18 Blood Pressure 177/85 H Blood Pressure Mean 115 Pulse Ox 99 Oxygen Delivery Method Room Air Weight Weight: 170 lb Body Mass Index (BMI) 30.1 Physical Exam Narrative Physical Examination: General: Awake, alert, oriented x 3 and cooperative, laying in the ED bed, uncomfortable appearing, notes ongoing pain to the lumbar spine, worse L paraspinous. Skin: Normal color, normal turgor, no icterus, no cyanosis. HEENT: AT/NC, EOMI, PERRLA, mildly dry MM, no carotid bruits or JVD noted. Lungs: Diminished, greater bases, appropriate effort, no rales, ronchi or wheezing. Heart: Currently regular rate and rhythm; no gallop, rub audible. Abdomen: Soft, obese, NTTP, ND, distant normal BS, no HSM. Extremities: No cyanosis, clubbing, or edema, + SLR, reproducible discomfort to palpation of the lumbar spine particularly left paraspinous, no spinal step-off or pain with palpation of the spine itself. Neurological: Patient awake, alert, oriented as noted, cognitive function intact; pupils equally reactive to light and accommodation, cranial nerves II-XII grossly normal, moving all 4 extremities except limited secondary to worsened lumbar back discomfort, no focal deficits, sensation intact, strength moderately to severely global decreased secondary to acute presentation. Psychiatric: Affect appears uncomfortable, no acute evidence of depressive or anxiety feelings. Results Lab / Micro Data Result Diagrams: 05/28/22 14:00 05/28/22 14:00 Labs: Laboratory Results - last 24 hr 05/28/22 12:55: Urine Color Yellow, Urine Clarity Clear, Urine pH 6.5, Ur Specific [place] 1.010, Urine Protein 15 H, Urine Glucose (UA) Normal, Urine Ketones Negative, Urine Occult Blood 25 H, Urine Nitrite Negative, Urine Bilirubin Negative, Urine Urobilinogen Normal, Ur Leukocyte Esterase 25 H, Urine RBC 0-5 SEEN, Urine WBC 0-5 SEEN, Ur Squamous Epith Cells 0 SEEN, Urine Bacteria 0 SEEN, Urine Mucus 0 SEEN 05/28/22 14:00: WBC 10.4, RBC 3.99 L, Hgb 13.1, Hct 38.4, MCV 96.2, MCH 32.8 H, MCHC 34.1, RDW Std Deviation 42.2, RDW Coeff of Lucila 12.0, Plt Count 279, MPV 9.3, Immature Gran % (Auto) 0.500, Neut % (Auto) 80.8 H, Lymph % (Auto) 10.8 L, [place] % (Auto) 7.7, Eos % (Auto) 0.0, Baso % (Auto) 0.2, Absolute Neuts (auto) 8.4 H, Absolute Lymphs (auto) 1.12, Nucleated RBC % 0 05/28/22 14:00: Sodium 137, Potassium 4.0, Chloride 103, Carbon Dioxide 26.0, Anion Gap 8, BUN 23 H, Creatinine 0.76, Estim Creat Clear Calc 34.64, Est GFR (MDRD) Af Amer 93, Est GFR (MDRD) Non-Af 77, BUN/Creatinine Ratio 30.3 H, Glucose 107 H, Calcium 9.0 Radiology Impression Abdomen/Pelvis CT 05/28/22 13:18 IMPRESSION: Mild degree of increased markings in the peripancreatic fat in the region of the head of the pancreas. Localized pancreatitis should BE ruled out. Spondylolisthesis of L4 on L5 without spondylolysis. Loss of height of the L5 1 vertebrae. Fatty infiltration of the liver. Electronically Signed: Kalyan Cha MD at 15:33 EDT , Assessment & Plan Assessment/Plan (1) Intractable back pain: PLAN: Plan The patient is an 86 y/o F w/ PMHx: GERD, Anxiety and Depression, Radiculopathy, Obesity, Former tobacco use who presents to the [facility] ED on 05/28/22 with history of ongoing lumbar pain, worse on evaluation to the left paraspinous lumbar with concurrent BL ongoing hip pain with reported recent BL hip outpatient hip injection secondary to patient complaints with ongoing symptoms with evaluation by both her PCP and Orthopedic surgery who recommended she present to the ED for evaluation given ongoing intractable pain despite treatment attempts. #1. Acute Intractable Lumbar Back Pain, reported prior BL Hip pain but primarily back discomfort on evaluation: CT abdomen and pelvis with a mild degree of increased markings in the peripancreatic fat in the region of the head of the pancreas, localized pancreatitis should be ruled out, spondylolisthesis of L4 and L5 without spondylosis with loss of height of the L5 first vertebrae, fatty infiltration of the liver. Will admit to [facility], maintain on fall precautions, frequent positioning, IV toradol x 1 only given renal function and hold on aggressive NSAID therapy, lidoacine patches, low dose tizanidine, medrol dose pack, po/IV narcotic pain regimen, anti-emetics, bowel regimen. Will consult PT and OT for evaluation as well as Case management for discharge planning. If patient does not have any improvement with these interventions then may necessitate further more aggressive imaging with MRI and potential neurosurgery/orthospine involvement. #2. Elevated BP without hypertensive diagnosis: Patient with significantly elevated BP in the ED upon presentation however this may be attributed to significant pain, will continue to closely monitor and if remains elevated despite pain control may necessitate initiation of oral regimen, as needed IV hydralazine in interim. #3. Incidental Mild degree of increased markings head of the pancreas, unclear etiology: Lipase level normal, denies any current abdominal pain, continue to monitor, obtain repeat lipase in the AM. #4. Anxiety and depression: We will continue patient on fluoxetine regimen. #5. Obesity: Weight loss and lifestyle changes encouraged. #6. Former tobacco usage: Encourage continued tobacco cessation. #7. GERD: We will continue patient on PPI. #8. DVT prophylaxis: SCDs, Lovenox. #9. CODE status: Patient REYMUNDO is her daughter who is present and living will is currently in place. Discussed CODE status at length including difference between FULL code, DNR-CCA and DNR-CC status. Following discussions about the differences in these status, requested Full Code status. Advanced Care Planning Face to Face Time: 16 minutes. Charges/Coding Visit Charges OBSV E&M: 45854 Initial observation care L3 Procedures Hospitalists Procedures: 59259 Advncd Care Plan 30 Min
[2022-05-28 17:03] VITALS: BP 142/76; PULSE 76; RESP 16; TEMP 36.6; O2SAT 96
[2022-05-28 17:29] LABS: AST(SGOT) 22 U/L (15-37); Alanine Aminotransfer ALT/SGPT 25 U/L (13-56); Albumin, Serum 3.3 g/dL (3.2-5.0); Alkaline Phosphatase 81 U/L (45-117); Bilirubin, Direct 0.07 mg/dL (0.00-0.30); Globulin 3.7 g/dL (2.2-4.2); Lipase 85 U/L (73-393)
[2022-05-28 18:23] VITALS: BMI 31.8
[2022-05-28 18:25] VITALS: BP 189/69; PULSE 72; RESP 18; TEMP 36.4; O2SAT 96
[2022-05-28] MEDS: 0.9% Normal Saline 1,000 ML 100 ML IV (18:49)
[2022-05-28] MEDS: Lidocaine 5% Patch 2 PATCH TOPICAL (18:49)
[2022-05-28] MEDS: tiZANidine HCl 2 MG Tablet PO (18:50)
[2022-05-28] MEDS: 0.9% Saline Lock 10 ML Syringe IV (18:50)
[2022-05-28] MEDS: Gabapentin 100 MG Capsule PO (18:50)
[2022-05-28 20:05] VITALS: O2SAT 97
--- NOTE | 2022-05-28 20:46 | PCM.PN.ORT ---
Subjective Subjective Back pain Objective Data Objective Data Vital Signs: Vital Signs Temp Pulse Resp BP Pulse Ox O2 Del Method 97.6 F L 72 18 189/69 H 96 Room Air 05/28/22 18:25 05/28/22 18:25 05/28/22 18:25 05/28/22 18:25 05/28/22 18:25 05/28/22 18:25 Oxygen Delivery Method Room Air Weight: 179 lb 10.828 oz Body Mass Index (BMI) 31.8 Intake & Output: Intake and Output for Last 24 Hours 05/26/22 05/27/22 05/28/22 23:59 23:59 23:59 Intake Total 93.33 / 93.33 Balance 93.33 / 93.33 Lab / Micro Data Attestation: I reviewed the patient's lab results. Result Diagrams: 05/28/22 14:00 05/28/22 14:00 Labs: Laboratory Results - last 24 hr 05/28/22 12:55: Urine Color Yellow, Urine Clarity Clear, Urine pH 6.5, Ur Specific [place] 1.010, Urine Protein 15 H, Urine Glucose (UA) Normal, Urine Ketones Negative, Urine Occult Blood 25 H, Urine Nitrite Negative, Urine Bilirubin Negative, Urine Urobilinogen Normal, Ur Leukocyte Esterase 25 H, Urine RBC 0-5 SEEN, Urine WBC 0-5 SEEN, Ur Squamous Epith Cells 0 SEEN, Urine Bacteria 0 SEEN, Urine Mucus 0 SEEN 05/28/22 14:00: WBC 10.4, RBC 3.99 L, Hgb 13.1, Hct 38.4, MCV 96.2, MCH 32.8 H, MCHC 34.1, RDW Std Deviation 42.2, RDW Coeff of [place]ila 12.0, Plt Count 279, MPV 9.3, Immature Gran % (Auto) 0.500, Neut % (Auto) 80.8 H, Lymph % (Auto) 10.8 L, [place] % (Auto) 7.7, Eos % (Auto) 0.0, Baso % (Auto) 0.2, Absolute Neuts (auto) 8.4 H, Absolute Lymphs (auto) 1.12, Nucleated RBC % 0 05/28/22 14:00: Sodium 137, Potassium 4.0, Chloride 103, Carbon Dioxide 26.0, Anion Gap 8, BUN 23 H, Creatinine 0.76, Estim Creat Clear Calc 34.64, Est GFR (MDRD) Af Amer 93, Est GFR (MDRD) Non-Af 77, BUN/Creatinine Ratio 30.3 H, Glucose 107 H, Calcium 9.0 05/28/22 14:00: Total Bilirubin 0.40, Direct Bilirubin 0.07, AST 22, ALT 25, Alkaline Phosphatase 81, Total Protein 7.0, Albumin 3.3, Globulin 3.7, Lipase 85 Radiography Diagnostic Testing: Radiology Impression Abdomen/Pelvis CT 05/28/22 13:18 IMPRESSION: Mild degree of increased markings in the peripancreatic fat in the region of the head of the pancreas. Localized pancreatitis should BE ruled out. Spondylolisthesis of L4 on L5 without spondylolysis. Loss of height of the L5 1 vertebrae. Fatty infiltration of the liver. Electronically Signed: Kalyan Cha MD at 15:33 EDT , Assessment & Plan Assessment/Plan (1) Intractable back pain: PLAN: Plan I reviewed the CT, spoke with Dr. Bynum, the daughter, and the nurse taking care of the patient. CT does not point to a specific cause of the back pain, and given severity and progressive onset of the back pain I will order a stat MRI lumbar spine to rule out a potential neurologic cause out of an abundance of caution. Will follow patient while in hospital.
[2022-05-29] VITALS (14 sets, daily range): BP systolic 81–195; BP diastolic 35–79; PULSE 66–86; RESP 10–18; TEMP 36.9–37.4; O2SAT 92–97
[2022-05-29 05:42] LABS: Absolute Lymphocyte Count 1.26 X10^3/uL (0.83-4.51); Absolute Neutrophil Count 5.3 X10^3/uL (2.0-7.7); Basophil# 0.02 X10^3/uL; Basophil% 0.3 % (0-1); Hematocrit 34.9 % (37-47); Hemoglobin 11.4 g/dL (12.0-15.0); Lymphocyte # 1.26 X10^3/ul (0.83-4.51); Lymphocyte % 16.9 % (19-41); Mean Corp Hgb Conc 32.7 g/dL (32-36); Mean Corpuscular Hgb 32.1 pg (27.0-32.0); Mean Corpuscular Volume 98.3 fL (81-99); Mean Platelet Vol. 9.4 fl (6.2-12.0); Monocyte# 0.78 X10^3/uL; Monocyte% 10.5 % (0-10); NRBC Flagged by Analyzer 0 % (0-5); Neutrophil # 5.33 X10^3/uL (2.7-7.7); Neutrophil % 71.4 % (47-70); Platelet Count 288 K/mm3 (150-450); RBC Distribution Width CV 12.1 % (11.6-14.6); Red Blood Count 3.55 M/mm3 (4.2-5.4); White Blood Count 7.5 K/mm3 (4.4-11.0)
[2022-05-29 06:37] LABS: ALB/GLOB Ratio 0.8 RATIO (0.9-2.4); AST(SGOT) 13 U/L (15-37); Alanine Aminotransfer ALT/SGPT 19 U/L (13-56); Albumin, Serum 2.7 g/dL (3.2-5.0); Alkaline Phosphatase 70 U/L (45-117); Anion Gap 4 (5-15); BUN 25 mg/dL (7-18); Calcium,Total 8.7 mg/dL (8.5-10.1); Chloride 106 mmol/L (98-107); Creatinine, Serum 0.72 mg/dL (0.55-1.02); EST Glomerular Filtration Rate 83 mL/min (>60); Est Glom Filt Rate - Afr Amer 100 mL/min (>60); Estimated Creatinine Clearance 34.64 ml/min; Globulin 3.3 g/dL (2.2-4.2); Glucose 93 mg/dL (74-106); Lipase 78 U/L (73-393); Potassium 4.3 mmol/L (3.5-5.1); Sodium Level 138 mmol/L (136-145)
--- NOTE | 2022-05-29 06:52 | MRI_ITS ---
STUDY: MRI LUMBAR SPINE WITHOUT CONTRAST REASON FOR EXAM: Female, 86 years old. worsening back pain unexplained by CT TECHNIQUE: Standardized fat and water weighted pulse sequences were obtained in the sagittal and axial planes. COMPARISON: None FINDINGS: T12-L1: . Normal disc height, hydration and morphology. Normal bilateral facet joints. Normal central canal and bilateral lateral recesses. Normal bilateral intervertebral neural foramina. Normal lumbar lordosis. There is no substantial scoliosis. Normal conus medullaris that terminates at L1 L1-2: There is wedging of the inferior endplate of L1 demonstrating low signal intensity on T1 which increases in signal intensity on T2 and STIR imaging sequences consistent with recent fracture and intramedullary bone marrow edema with approximately 50% loss of vertebral body height on the right and retropulsion of posterior inferior endplate.... Normal disc height, hydration and morphology. Normal bilateral facet joints. Mild narrowing of the central canal and bilateral lateral recesses and neural foramina L2-3: Normal endplates. Normal disc height, desiccation and minimal annular bulge.. Normal bilateral facet joints. Normal central canal and bilateral lateral recesses. Normal bilateral intervertebral neural foramina. L3-4: Normal endplates. Normal disc height, desiccation and minimal annular bulge.. Mild facet arthropathy and thickening of ligamenta flava.. Normal central canal and bilateral lateral recesses. Mild to moderate bilateral neuroforaminal encroachment. L4-5: Grade 1 spondylolisthesis. Narrowed disc space with desiccation of disc and mild bulging disc osteophyte complex. Facet arthropathy and thickening of ligamenta flava. Normal central canal and bilateral lateral recesses. Moderate to severe bilateral neuroforaminal stenosis exaggerated by shortened pedicles. L5-S1: Normal endplates. Normal disc height, desiccation and minimal annular bulge.. Mild facet arthropathy. Normal central canal and bilateral lateral recesses. Minor bilateral neuroforaminal encroachment.. Normal visualized sacral ala. Normal visualized paraspinous soft tissue structures. MRI/Spine Lumbar (Routine) IMPRESSION: Findings consistent with recent compression of inferior endplate of L1 and retropulsion of posterior inferior endplate creating mild spinal stenosis Multilevel disc disease and facet arthropathy creating spinal stenosis most severe at L4-5 exaggerated by shortened pedicles Electronically Signed: Edenilson Zhao MD at 16:18 EDT ,
--- NOTE | 2022-05-29 07:45 | PN.ORTHO_ITS ---
Subjective Subjective She feels like the pain has diminished slightly this morning. It is still located mostly in her back. No abdominal pain. No loss of bowel or bladder function. No numbness tingling or weakness in the legs. Yesterday was slightly more to the left side of midline now it is more of midline lower lumbar spine. Objective Data Objective Data Vital Signs: Vital Signs Temp Pulse Resp BP Pulse Ox O2 Del Method 99.3 F H 72 16 113/56 L 97 Room Air 05/29/22 03:09 05/29/22 03:09 05/29/22 03:09 05/29/22 03:09 05/29/22 07:37 05/29/22 07:37 Oxygen Delivery Method Room Air Weight: 179 lb 10.828 oz Body Mass Index (BMI) 31.8 Intake & Output: Intake and Output for Last 24 Hours 05/27/22 05/28/22 05/29/22 23:59 23:59 23:59 Intake Total 93.33 / 93.33 906.67 / 906.67 Balance 93.33 / 93.33 906.67 / 906.67 Lab / Micro Data Result Diagrams: 05/29/22 05:05 05/29/22 05:05 Labs: Laboratory Results - last 24 hr 05/28/22 12:55: Urine Color Yellow, Urine Clarity Clear, Urine pH 6.5, Ur Specific [place] 1.010, Urine Protein 15 H, Urine Glucose (UA) Normal, Urine Ketones Negative, Urine Occult Blood 25 H, Urine Nitrite Negative, Urine Bilirubin Negative, Urine Urobilinogen Normal, Ur Leukocyte Esterase 25 H, Urine RBC 0-5 SEEN, Urine WBC 0-5 SEEN, Ur Squamous Epith Cells 0 SEEN, Urine Bacteria 0 SEEN, Urine Mucus 0 SEEN 05/28/22 14:00: WBC 10.4, RBC 3.99 L, Hgb 13.1, Hct 38.4, MCV 96.2, MCH 32.8 H, MCHC 34.1, RDW Std Deviation 42.2, RDW Coeff of Lucila 12.0, Plt Count 279, MPV 9.3, Immature Gran % (Auto) 0.500, Neut % (Auto) 80.8 H, Lymph % (Auto) 10.8 L, [place] % (Auto) 7.7, Eos % (Auto) 0.0, Baso % (Auto) 0.2, Absolute Neuts (auto) 8.4 H, Absolute Lymphs (auto) 1.12, Nucleated RBC % 0 05/28/22 14:00: Sodium 137, Potassium 4.0, Chloride 103, Carbon Dioxide 26.0, Anion Gap 8, BUN 23 H, Creatinine 0.76, Estim Creat Clear Calc 34.64, Est GFR (MDRD) Af Amer 93, Est GFR (MDRD) Non-Af 77, BUN/Creatinine Ratio 30.3 H, Glucose 107 H, Calcium 9.0 05/28/22 14:00: Total Bilirubin 0.40, Direct Bilirubin 0.07, AST 22, ALT 25, Alkaline Phosphatase 81, Total Protein 7.0, Albumin 3.3, Globulin 3.7, Lipase 85 05/29/22 05:05: WBC 7.5, RBC 3.55 L, Hgb 11.4 L, Hct 34.9 L, MCV 98.3, MCH 32.1 H, MCHC 32.7, RDW Std Deviation 44.0 H, RDW Coeff of Lucila 12.1, Plt Count 288, MPV 9.4, Immature Gran % (Auto) 0.900, Neut % (Auto) 71.4 H, Lymph % (Auto) 16.9 L, [place] % (Auto) 10.5 H, Eos % (Auto) 0.0, Baso % (Auto) 0.3, Absolute Neuts (auto) 5.3, Absolute Lymphs (auto) 1.26, Nucleated RBC % 0 05/29/22 05:05: Sodium 138, Potassium 4.3, Chloride 106, Carbon Dioxide 28.0, Anion Gap 4 L, BUN 25 H, Creatinine 0.72, Estim Creat Clear Calc 34.64, Est GFR (MDRD) Af Amer 100, Est GFR (MDRD) Non-Af 83, BUN/Creatinine Ratio 35.0 H, Glucose 93, Calcium 8.7, Total Bilirubin 0.40, AST 13 L, ALT 19, Alkaline Phosphatase 70, Total Protein 6.0 L, Albumin 2.7 L, Globulin 3.3, Albumin/Globulin Ratio 0.8 L, Lipase 78 Radiography Diagnostic Testing: Radiology Impression Abdomen/Pelvis CT 05/28/22 13:18 IMPRESSION: Mild degree of increased markings in the peripancreatic fat in the region of the head of the pancreas. Localized pancreatitis should BE ruled out. Spondylolisthesis of L4 on L5 without spondylolysis. Loss of height of the L5 1 vertebrae. Fatty infiltration of the liver. Electronically Signed: Kalyan Cha MD at 15:33 EDT , Physical Exam Const alert and oriented x3 Constitutional Narrative: She was up to the washroom ambulating independently today with a walker. No steps or gaps in the lumbar spine but this seems to be more so where her pain is located on palpation. There is no skin changes. Normal sensation and motor fu nction L2-S1 although strength testing left lower extremity does cause her back pain. Assessment & Plan Assessment/Plan (1) Intractable back pain: PLAN: 86-year-old female with lower back pain her pain is a little bit better under control today no neurologic findings however I have still gone ahead and ordered urgent MRI of the lumbar spine and I will review that when the results are back. I explained this to the patient. I talked to the nurses. There is no acute concerns overnight. I have asked one of the nurses to give her a verbal order upon the nurse request apparently the patient has some anxiety so we will try 1 small dose of Ativan as needed prior to the MRI.
[2022-05-29] MEDS: Morphine 2 MG/ML Syringe IV ×3 (08:27→14:20)
[2022-05-29] MEDS: 0.9% Saline Lock 10 ML Syringe IV ×3 (08:27→14:28)
[2022-05-29] MEDS: Gabapentin 100 MG Capsule PO ×3 (08:28→16:49)
[2022-05-29] MEDS: hydrALAZINE 20 MG/ML Vial 10 MG IV (08:28)
[2022-05-29] MEDS: Pantoprazole Sodium 20 MG Tablet PO (08:28)
[2022-05-29] MEDS: Fluoxetine HCl 40 MG CAPSULE PO (08:36)
[2022-05-29] MEDS: Enoxaparin 30 MG/0.3 ML Syringe SC (08:36)
[2022-05-29] MEDS: Ondansetron 4 MG/2 ML Vial IV (10:25)
[2022-05-29] MEDS: oxyCODONE 5 MG Tablet PO ×3 (10:26→20:46)
--- NOTE | 2022-05-29 14:06 | PN.HOSP_ITS ---
Subjective Subjective Patient still complaining of significant back pain. It sounds like its in the upper low back area. MRI is pending per orthopedic surgery. Patient indicates that intermittently wraps around her abdomen but denies any groin or buttock pain. She denies any radicular symptoms and has had no bowel or bladder changes . Objective Data Objective Data Vital Signs: Vital Signs Temp Pulse Resp BP Pulse Ox O2 Del Method 98.5 F 86 18 195/79 H 95 Room Air 05/29/22 08:52 05/29/22 08:52 05/29/22 08:52 05/29/22 08:52 05/29/22 08:52 05/29/22 08:52 Oxygen Delivery Method Room Air Weight: 81.5 kg Body Mass Index (BMI) 31.8 Intake & Output: Intake and Output for Last 24 Hours 05/27/22 05/28/22 05/29/22 23:59 23:59 23:59 Intake Total 93.33 / 93.33 906.67 / 906.67 Balance 93.33 / 93.33 906.67 / 906.67 Lab / Micro Data Result Diagrams: 05/29/22 05:05 05/29/22 05:05 Labs: Laboratory Results - last 24 hr 05/28/22 14:00: WBC 10.4, RBC 3.99 L, Hgb 13.1, Hct 38.4, MCV 96.2, MCH 32.8 H, MCHC 34.1, RDW Std Deviation 42.2, RDW Coeff of Lucila 12.0, Plt Count 279, MPV 9.3, Immature Gran % (Auto) 0.500, Neut % (Auto) 80.8 H, Lymph % (Auto) 10.8 L, [place] % (Auto) 7.7, Eos % (Auto) 0.0, Baso % (Auto) 0.2, Absolute Neuts (auto) 8.4 H, Absolute Lymphs (auto) 1.12, Nucleated RBC % 0 05/28/22 14:00: Sodium 137, Potassium 4.0, Chloride 103, Carbon Dioxide 26.0, Anion Gap 8, BUN 23 H, Creatinine 0.76, Estim Creat Clear Calc 34.64, Est GFR (MDRD) Af Amer 93, Est GFR (MDRD) Non-Af 77, BUN/Creatinine Ratio 30.3 H, Glucose 107 H, Calcium 9.0 05/28/22 14:00: Total Bilirubin 0.40, Direct Bilirubin 0.07, AST 22, ALT 25, Alkaline Phosphatase 81, Total Protein 7.0, Albumin 3.3, Globulin 3.7, Lipase 85 05/29/22 05:05: WBC 7.5, RBC 3.55 L, Hgb 11.4 L, Hct 34.9 L, MCV 98.3, MCH 32.1 H, MCHC 32.7, RDW Std Deviation 44.0 H, RDW Coeff of Lucila 12.1, Plt Count 288, MPV 9.4, Immature Gran % (Auto) 0.900, Neut % (Auto) 71.4 H, Lymph % (Auto) 16.9 L, [place] % (Auto) 10.5 H, Eos % (Auto) 0.0, Baso % (Auto) 0.3, Absolute Neuts (auto) 5.3, Absolute Lymphs (auto) 1.26, Nucleated RBC % 0 05/29/22 05:05: Sodium 138, Potassium 4.3, Chloride 106, Carbon Dioxide 28.0, Anion Gap 4 L, BUN 25 H, Creatinine 0.72, Estim Creat Clear Calc 34.64, Est GFR (MDRD) Af Amer 100, Est GFR (MDRD) Non-Af 83, BUN/Creatinine Ratio 35.0 H, Glucose 93, Calcium 8.7, Total Bilirubin 0.40, AST 13 L, ALT 19, Alkaline Phosphatase 70, Total Protein 6.0 L, Albumin 2.7 L, Globulin 3.3, Albumin/Globulin Ratio 0.8 L, Lipase 78 Radiography Diagnostic Testing: Radiology Impression Abdomen/Pelvis CT 05/28/22 13:18 IMPRESSION: Mild degree of increased markings in the peripancreatic fat in the region of the head of the pancreas. Localized pancreatitis should BE ruled out. Spondylolisthesis of L4 on L5 without spondylolysis. Loss of height of the L5 1 vertebrae. Fatty infiltration of the liver. Electronically Signed: Kalyan Cha MD at 15:33 EDT , Physical Exam Const alert, oriented x3 and well nourished Constitutional Narrative: Obese, elderly white female lying in bed, appears comfortable and nontoxic, daughter at bedside, patient does however have difficulty with moving in bed but was able to roll independently HEENT head/scalp atraumatic and moist oral mucous membranes Head and Scalp: normocephalic Resp normal respiratory effort, no retractions, no use of accessory muscles and clear to auscultation bilaterally Auscultation: Negative for crackles, rales, rhonchi or wheezes Cardio regular rate, regular rhythm, S1 normal heart sound, S2 normal heart sound, no murmurs, no rub, no gallops and no clicks Cardio Narrative: Few ectopic beats GI normal to inspection, nondistended, normoactive bowel sounds, soft to palpation and non-tender Extremity no clubbing, cyanosis or edema Extremity Narrative: 2+ pedal pulses Neuro oriented x3, moves all extremities and no focal motor deficits Neuro Narrative: 2+ reflexes bilateral lower extremity Speech: speech normal Assessment & Plan Assessment/Plan (1) Intractable back pain: (2) Abnormal CT of the abdomen: PLAN: Plan Intractable low back pain -No radicular symptoms or symptoms concerning for cauda equina -Continue medications as ordered -Continue as needed stool softeners -MRI pending -CTA was done upon presentation to the emergency department and the patient has spondylolisthesis of L4 on L5 without any spondylosis and loss of height of the L5 vertebrae and fatty infiltration of the liver -Orthopedic surgery is following-appreciate input Fatty liver -Likely related to body habitus and diet -Would recommend outpatient follow-up Elevated blood pressure -May be related to pain -Continue to monitor and if remains elevated may need to initiate antihypertensive prior to discharge -Continue as needed hydralazine Hyperlipidemia -Cholesterol in February 2021 shows a total cholesterol of 239/LDL of 134/HDL 64 -Patient not on any outpatient regimen -Commend follow-up with outpatient physician especially with noted above fatty liver as this is likely contributing Abnormal CT of the abdomen -Increased markings in the head of the pancreas with unclear etiology -Patient without any abdominal pain -Lipase is normal -MRCP ordered for better evaluation GERD -Continue PPI Obesity -Recommend weight loss -BMI 31.8 -Complicates treatment, prognosis, outcomes Anxiety/depression -Continue fluoxetine History of tobacco abuse -Can encourage continued cessation DVT prophylaxis -SCDs -Lovenox CODE STATUS -full code Charges/Coding Visit Charges OBSV E&M: 24324 Initial observation care L2
--- NOTE | 2022-05-29 14:15 | MRI_ITS ---
EXAM: MR ABDOMEN WITHOUT INTRAVENOUS CONTRAST, MRCP PROTOCOL CLINICAL INDICATION: pancreas abn CT TECHNIQUE: Multiplanar and multisequence MR images of the abdomen without intravenous contrast obtained with MRCP sequence. Three-dimensional post-processing reconstructions were performed. This report was created using [employer] report generation technology. COMPARISON: CT abdomen 05/28/2022. FINDINGS: LOWER THORAX: Heart size is normal. No pleural effusion. LIVER: 2.1 x 2.9 cm lateral segment hepatic cyst. The liver is otherwise unremarkable. GALLBLADDER AND BILE DUCTS: Common duct is normal in caliber. No evidence of choledocholithiasis. No gallbladder distention or wall edema. PANCREAS: Pancreatic duct is not dilated. Multiple pancreatic cysts measure up to 9 mm. SPLEEN: Unremarkable. Non-enlarged. ADRENALS: Unremarkable. No nodules. KIDNEYS AND URETERS: Unremarkable. Normal renal size and position. No hydronephrosis. INTRAPERITONEAL SPACE: Unremarkable. No ascites or other fluid collection. VASCULATURE: Unremarkable. Abdominal aorta is non-dilated. LYMPH NODES: No enlarged lymph nodes. MRI/MRCP Abdomen without Contrast IMPRESSION: 1. Small pancreatic cysts, not well demonstrated on CT scan. ACR White Paper guidelines (Jed, et al. JACR 2017; 14(7):911-923) suggest a contrast-enhanced, pancreas-protocol abdominal MR in 2 years. 2. Hepatic cyst. Electronically Signed: Raquel Chaves MD at 19:37 EDT Reading Location ID and State: [id number] / Tel , Service support ,
[2022-05-29] MEDS: LORazepam 2 MG/ML Syringe 0.5 MG IV (14:25)
--- NOTE | 2022-05-29 15:40 | CASEMGMT ---
MAMTA OLIVEROS in room to complete WEAVER form. Pt is off of the floor at this time. Pt dtr Maritza present in room. She states pt lives alone and she is not sure of the plan at this time. States if patient's pain is under control she can return home. States she can do cooking, cleaning and shopping for her mother but not bathing and dressing. Pt having MRI currently and plans to have a MRCP yet d/t possible pancreatitis. MAMTA OLIVEROS to complete WEAVER when pt back on floor and determine dc plan after results of testing.
--- NOTE | 2022-05-29 16:07 | NURSING ---
1445-OFF UNIT VIA BED FOR MRI. PREMEDICATED W/ATIVAN AND MORPHINE
[2022-05-29] MEDS: Senna/Docusate Sodium 1 Tablet 2 TABLET PO (16:49)
[2022-05-29] MEDS: MethylPREDNISolone DosePak 4 MG BOX PO ×2 (16:50→20:47)
[2022-05-29] MEDS: Acetaminophen 325 MG Tablet 650 MG PO (20:45)
[2022-05-29] MEDS: MELATONIN 3 MG TABLET PO (20:46)
[2022-05-30 02:30] VITALS: BP 134/80; PULSE 79; RESP 16; TEMP 36.6; O2SAT 95
[2022-05-30 08:02] VITALS: O2SAT 98
[2022-05-30 09:00] VITALS: BP 98/81; PULSE 102; RESP 18; TEMP 37.2; O2SAT 98
[2022-05-30] MEDS: MethylPREDNISolone DosePak 4 MG BOX PO ×4 (09:27→21:18)
[2022-05-30] MEDS: Lidocaine 5% Patch 2 PATCH TOPICAL (09:28)
[2022-05-30] MEDS: Enoxaparin 30 MG/0.3 ML Syringe SC (09:28)
[2022-05-30] MEDS: Pantoprazole Sodium 40 MG Tablet PO (09:29)
[2022-05-30] MEDS: Fluoxetine HCl 40 MG CAPSULE PO (09:31)
[2022-05-30] MEDS: oxyCODONE 5 MG Tablet PO ×2 (09:35→19:50)
[2022-05-30] MEDS: Gabapentin 100 MG Capsule PO ×3 (09:36→17:44)
[2022-05-30] MEDS: Acetaminophen 325 MG Tablet 650 MG PO ×2 (09:36→19:50)
[2022-05-30] MEDS: Bisacodyl 5 MG Tablet PO (09:36)
[2022-05-30] MEDS: 0.9% Saline Lock 10 ML Syringe IV (09:44)
--- NOTE | 2022-05-30 10:35 | CASEMGMT ---
RN CM GROCERY CLERK STOCKING CM to room to meet with patient for initial transition planning/care coordination assessment. RN DOMO introduced self and role at [facility]. Pt voices understanding and consents to assessment at this time. Pt resting in bed in no distress at this time. Pt is A/O at this time and answers all questions appropriately. Care providers, pharmacy, and demographics verified/updated at this time. PCP: Dr Stark Specialists: none Preferred Pharmacy: [facility] Retail Insurance: [employer] [facility] Prescription Benefit: Yes Living Will/HPOA: Has done both LW and HPOA, who is her daughter, Maritza LNOK: Dtr, CATIE Salas Living Arrangements: Lives alone in one story home w/one step to enter. Was independent w/ADL's and IADL's up until about 10 days ago. Dtr lives almost next door and she does not work. Pt states her daughter is willing to stay with her, if needed, and can assist w/IADL's (cooking, shopping and laundry) but she is not willing to do ADL's, such as bathing/dressing. She states she thinks she would also be willing to assist her w/SBA when ambulating. Transportation: Pt states drives self and states no transportation concerns at this time. Dtr also drives. DME: States has the following DME: cane, walker. She states does not have a shower chair, but does have one available she can borrow. Pt states no need for further DME at this time. HHC/SNF: No hx of either. Discussed discharge planning. Pt prefers not to go to a SNF, unless she is still having a lot of pain, needing more assist w/care, and if her daughter is not comfortable w/caring for her. She prefers to return home and have her daughter stay w/her, if needed, and would lke C for PT/OT and an aide. A list of HHC providers including quality and resource use data and consistent with the patient?s preferred geographic region, medical needs, and insurance network were provided from the [facility] for pt to review. CM to follow for for further discharge planning/needs. Pt voices no further concerns/needs at this time. Advised pt to ask for CM if any further questions/concerns/needs arise. Voices understanding. PLAN: Home w/dtr support and HHC (PT/OT and an aide) vs SNF (if still too painful and dtr unable/unwilling to provide enough care) Marisol WHITEN RN CM
--- NOTE | 2022-05-30 10:45 | CASEMGMT ---
MAMTA OLIVEROS NOTE: WEAVER form explained re: Observation status for treatment of intractable back, hip pain. Explained hospitalization will be paid per her insurance policy for Outpatient billing and condition will continue to be evaluated for Inpt necessity. Also let pt know that [facility] sends paper in the billing packet with their phone number if questions arise. Discussed Pharmacy section of WEAVER form and self administered medication guideline. Pt verbalizes understanding and does not have further questions. Form signed, copy made and placed in chart, and original given to pt. Marisol PATEL RN CM
--- NOTE | 2022-05-30 10:54 | PCM.PN.ORT ---
Objective Data Objective Data Vital Signs: Vital Signs Temp Pulse Resp BP Pulse Ox O2 Del Method 98.9 F 102 H 18 98/81 H 98 Room Air 05/30/22 09:00 05/30/22 09:00 05/30/22 09:00 05/30/22 09:00 05/30/22 09:00 05/30/22 09:00 Oxygen Delivery Method Room Air Weight: 182 lb 15.739 oz Body Mass Index (BMI) 31.8 Intake & Output: Intake and Output for Last 24 Hours 05/28/22 05/29/22 05/30/22 23:59 23:59 23:59 Intake Total 93.33 / 93.33 906.67 / 906.67 Balance 93.33 / 93.33 906.67 / 906.67 Lab / Micro Data Result Diagrams: 05/29/22 05:05 05/29/22 05:05 Radiography Diagnostic Testing: Radiology Impression Lumbar Spine MRI 05/29/22 06:52 IMPRESSION: Findings consistent with recent compression of inferior endplate of L1 and retropulsion of posterior inferior endplate creating mild spinal stenosis Multilevel disc disease and facet arthropathy creating spinal stenosis most severe at L4-5 exaggerated by shortened pedicles Electronically Signed: Edenilson Zhao MD at 16:18 EDT , MRCP 05/29/22 14:15 IMPRESSION: 1. Small pancreatic cysts, not well demonstrated on CT scan. ACR White Paper guidelines (Jed, et al. JACR 2017; 14(7):911-923) suggest a contrast-enhanced, pancreas-protocol abdominal MR in 2 years. 2. Hepatic cyst. Electronically Signed: Raquel Chaves MD at 19:37 EDT Reading Location ID and State: [id number] / Tel , Service support , Assessment & Plan Assessment/Plan (1) Compression fracture of L1 lumbar vertebra: PLAN: 86 yr old female with L1 compression fracture neurologically intact with mild canal stenosis, this explains her back pain. At this point given no neurologic deficits, 50% height loss with minimal canal stenosis, I would recommend non operative management, brace for comfort TLSO if OT able to obtain over the weekend. Will consult with Dr. Padilla spine surgeon on Wednesday in regards to further recommendations. WBAT.
[2022-05-30] MEDS: Senna/Docusate Sodium 1 Tablet 2 TABLET PO (11:33)
[2022-05-30 15:26] VITALS: BP 180/67; PULSE 81; RESP 18; TEMP 37.4; O2SAT 98
[2022-05-30] MEDS: tiZANidine HCl 2 MG Tablet PO ×2 (15:32→21:18)
--- NOTE | 2022-05-30 15:45 | PN.HOSP_ITS ---
Subjective Subjective Follow-up for acute on chronic back pain Patient is still has severe back pain 8-10/10 in intensity. Exacerbated by movement. It is mainly on the L1 area with radiation to paraspinal region more on the left side. Denies sciatica pain. Objective Data Objective Data Vital Signs: Vital Signs Temp Pulse Resp BP Pulse Ox O2 Del Method 97.8 F 79 16 134/80 H 95 Room Air 05/30/22 02:30 05/30/22 02:30 05/30/22 02:30 05/30/22 02:30 05/30/22 02:30 05/30/22 02:30 Oxygen Delivery Method Room Air Weight: 182 lb 15.739 oz Body Mass Index (BMI) 31.8 Intake & Output: Intake and Output for Last 24 Hours 05/28/22 05/29/22 05/30/22 23:59 23:59 23:59 Intake Total 93.33 / 93.33 906.67 / 906.67 Balance 93.33 / 93.33 906.67 / 906.67 Lab / Micro Data Result Diagrams: 05/29/22 05:05 05/29/22 05:05 Radiography Diagnostic Testing: Radiology Impression Lumbar Spine MRI 05/29/22 06:52 IMPRESSION: Findings consistent with recent compression of inferior endplate of L1 and retropulsion of posterior inferior endplate creating mild spinal stenosis Multilevel disc disease and facet arthropathy creating spinal stenosis most severe at L4-5 exaggerated by shortened pedicles MRCP 05/29/22 14:15 IMPRESSION: 1. Small pancreatic cysts, not well demonstrated on CT scan. ACR White Paper guidelines (Jed, et al. JACR 2017; 14(7):911-923) suggest a contrast-enhanced, pancreas-protocol abdominal MR in 2 years. 2. Hepatic cyst. Electronically Signed: Raquel Chaves MD at 19:37 EDT Reading Location ID and State: [id number] / Tel , Service support , Physical Exam Narrative General: Alert, Oriented x3, Cooperative HEENT: Atraumatic, PERRLA, EOMI, Normocephalic Oral: No Gingival or Mucosal Lesions/ Ulcerations Neck: Supple, No JVD, Negative Carotid Bruits Lungs: Air entry diminished in bilateral lung bases. No crepitation/rhonchi Cardiovascular: Regular rate, Regular Rhythm, Normal S1, Normal S2, No murmurs Abdomen: Bowel Sounds Present, Soft, Non Tender, Non-Distended : No renal angle tenderness. No suprapubic tenderness. Extremities: No edema, Capillary Refill Less than 3 Seconds Skin: No rashes, No breakdown Musculoskeletal/spine: History of TKR. Bilateral hip arthritis and mild tenderness. Tenderness present between T12-L4, paraspinal muscle tenderness bilaterally more on left side. ROM of spine severely restricted. Neurological: Cranial nerves II-XII grossly intact, DTR 2+/4. Muscle strength 4/5 at major joints of lower extremities Psych/Mental Status: Flat affect. Assessment & Plan Assessment/Plan (1) Intractable back pain: (2) Abnormal CT of the abdomen: PLAN: Plan This is a 86-year-old female admitted with back pain predominantly lower back pain and bilateral hip pain for 10 days. 1. Intractable lower back pain probably due to L1 compression wedge fracture most likely pathological due to osteoporosis: Patient is being admitted on [facility] floor. Patient does not have sciatica or radicular pain or acute neurological symptoms to account for cauda equina. Abdomen pelvis CT shows spondylolisthesis of L4 and L5. MRI lumbar spine was done which shows recent compression fracture of inferior endplate of L1 with mild spinal stenosis multilevel disc disease and facet arthropathy creating severe spinal stenosis at level of L4-L5. I discussed with spine surgeon Dr. Edenilson Ricci due to patien t's preference and pain management Dr. Menjivar. Dr. Menjivar is out of town and probably will come in Wednesday noon. He will evaluate and potential plan of kyphoplasty on Wednesday afternoon/evening or Wednesday morning. After discussion with Dr. Edenilson dias, he would like to have follow-up call on Wednesday. This was communicated back to the patient. 2. Constipation: Patient did not had bowel movement for 2 days. Started on bisacodyl 5 mg oral and 10 mg suppository. Continue senna S and MiraLAX. Lipase is normal. Patient has mild abdominal discomfort/bloating probably due to constipation. 3 fatty liver: MRCP was done which shows a small pancreatic cyst and left lateral lobe cyst in the liver. Pancreatic cysts are subcentimeter. Suggested contrast-enhanced MRCP in 2 years. Elevated blood pressure -May be related to pain -Continue to monitor and if remains elevated may need to initiate antihypertensive prior to discharge -Continue as needed hydralazine Hyperlipidemia -Cholesterol in February 2021 shows a total cholesterol of 239/LDL of 134/HDL 64 -Patient not on any outpatient regimen -Commend follow-up with outpatient physician especially with noted above fatty liver as this is likely contributing GERD -Continue PPI Obesity -Recommend weight loss -BMI 31.8 -Complicates treatment, prognosis, outcomes Anxiety/depression -Continue fluoxetine History of tobacco abuse -Can encourage continued cessation DVT prophylaxis -SCDs -Lovenox 30 mg subcu daily. Last dose on Wednesday morning. CODE STATUS -full code Total time of the visit including total time spent in counseling or coordination of care, (more than 50% of the total time, spent in obtaining medical information from nurses and other ancillary care providers,explaining to the patient about labs, imaging, diagnosis and management of active complex medical conditions), discussion with orthopedic surgeon, Dr. Patterson, spine surgeon Dr. Edenilson Ricci and pain management Dr. Wells, review of labs and imaging and update given to patient and her daughter is 40 minutes. Charges/Coding Visit Charges Inpatient E&M: 50083 Subs Hosp L3
[2022-05-30] MEDS: Polyethylene Glycol 3350 17 GM PACKET PO (17:39)
[2022-05-30 20:05] VITALS: BP 154/65; PULSE 80; RESP 16; TEMP 37.4; O2SAT 97
[2022-05-30] MEDS: MELATONIN 3 MG TABLET PO (21:18)
[2022-05-31 02:05] VITALS: BP 141/83; PULSE 81; RESP 16; TEMP 36.5; O2SAT 97
[2022-05-31] MEDS: oxyCODONE 5 MG Tablet PO ×4 (02:16→20:04)
[2022-05-31] MEDS: Acetaminophen 325 MG Tablet 650 MG PO ×4 (02:16→20:04)
[2022-05-31] MEDS: tiZANidine HCl 2 MG Tablet PO (05:11)
--- NOTE | 2022-05-31 08:32 | PCM.PN.HOSP ---
Subjective Subjective Follow-up for severe back pain. No fever. Patient moved bowel. Still has severe back pain, unable to move around or walk independently Objective Data Objective Data Vital Signs: Vital Signs Temp Pulse Resp BP Pulse Ox O2 Del Method 97.7 F L 81 16 141/83 H 97 Room Air 05/31/22 02:05 05/31/22 02:05 05/31/22 02:05 05/31/22 02:05 05/31/22 02:05 05/31/22 02:05 Oxygen Delivery Method Room Air Weight: 183 lb 6.793 oz Body Mass Index (BMI) 31.8 Intake & Output: Intake and Output for Last 24 Hours 05/29/22 05/30/22 05/31/22 23:59 23:59 23:59 Intake Total 906.67 / 906.67 Balance 906.67 / 906.67 Lab / Micro Data Result Diagrams: 05/29/22 05:05 05/29/22 05:05 Physical Exam Narrative Seen and examined. Patient had good bowel movement. Still complain of pain 06/01 lower back mainly over moving over. Blood pressure fluctuates but most recent 141/83. Fluctuates between 98/71-180/67 General: Alert, Oriented x3, Cooperative HEENT: Atraumatic, PERRLA, EOMI, Normocephalic Oral: No Gingival or Mucosal Lesions/ Ulcerations Neck: Supple, No JVD, Negative Carotid Bruits Lungs: Air entry diminished in bilateral lung bases. No crepitation/rhonchi Cardiovascular: Regular rate, Regular Rhythm, Normal S1, Normal S2, No murmurs Abdomen: Bowel Sounds Present, Soft, Non Tender, Non-Distended : No renal angle tenderness. No suprapubic tenderness. Extremities: No edema, Capillary Refill Less than 3 Seconds Skin: No rashes, No breakdown Musculoskeletal/spine: History of TKR. Bilateral hip arthritis and mild tenderness. Tenderness present between T12-L4, paraspinal muscle tenderness bilaterally more on left side. ROM of spine severely restricted. Neurological: Cranial nerves II-XII grossly intact, DTR 2+/4. Muscle strength 4/5 at major joints of lower extremities Psych/Mental Status: Flat affect. Assessment & Plan Assessment/Plan (1) Intractable back pain: (2) Abnormal CT of the abdomen: PLAN: Plan This is a 86-year-old female admitted with back pain predominantly lower back pain and bilateral hip pain for 10 days. 1. Intractable lower back pain probably due to L1 compression wedge fracture most likely pathological due to osteoporosis: [facility]. Patient does not have sciatica or radicular pain or acute neurological symptoms to account for cauda equina. Abdomen pelvis CT shows spondylolisthesis of L4 and L5. MRI lumbar spine was done which shows recent compression fracture of inferior endplate of L1 with mild spinal stenosis multilevel disc disease and facet arthropathy creating severe spinal stenosis at level of L4-L5. I discussed with spine surgeon Dr. Edenilson Ricci due to patient's preference and pain management Dr. Menjivar. Dr. Menjivar is out of town and probably will come in Wednesday noon. He will evaluate and potential plan of kyphoplasty on Wednesday afternoon/evening or Wednesday morning. After discussion with Dr. Edenilson dias, he would like to have follow-up call on Wednesday. This was communicated back to the patient. 05/31: Patient still complaining of back pain 06/01. Patient on high dose of pain medications. Tizanidine increased to 4 mg every 8 hourly. Risk and benefit of opioids discussed stating risk for ileus/pseudo bowel obstruction, altered mental status, encephalopathy confusion, hypotension and respiratory failure. Rest plan as mentioned above. 2. Constipation: Patient did not had bowel movement for 2 days. Started on bisacodyl 5 mg oral and 10 mg suppository. Continue senna S and MiraLAX. Lipase is normal. Patient has mild abdominal discomfort/bloating probably due to constipation. 05/31: Patient had good bowel movement. Continue bowel regimen. 3 fatty liver: MRCP was done which shows a small pancreatic cyst and left lateral lobe cyst in the liver. Pancreatic cysts are subcentimeter. Suggested contrast-enhanced MRCP in 2 years. Elevated blood pressure -May be related to pain -Continue to monitor and if remains elevated may need to initiate antihypertensive prior to discharge -Continue as needed hydralazine Hyperlipidemia -Cholesterol in February 2021 shows a total cholesterol of 239/LDL of 134/HDL 64 -Patient not on any outpatient regimen -Commend follow-up with outpatient physician especially with noted above fatty liver as this is likely contributing GERD -Continue PPI Obesity -Recommend weight loss -BMI 31.8 -Complicates treatment, prognosis, outcomes Anxiety/depression -Continue fluoxetine History of tobacco abuse -Can encourage continued cessation DVT prophylaxis -SCDs -Lovenox 30 mg subcu daily. Last dose on Wednesday morning. CODE STATUS -full code Total time of the visit including total time spent in counseling or coordination of care, (more than 50% of the total time, spent in obtaining medical information from nurses and other ancillary care providers,explaining to the patient about labs, imaging, diagnosis and management of active complex medical conditions), discussion with orthopedic surgeon, Dr. Patterson, spine surgeon Dr. Edenilson Ricci and pain management Dr. Wells, review of labs and imaging and update given to patient and her daughter is 40 minutes. Charges/Coding Visit Charges Inpatient E&M: 35765 Subs Hosp L3
[2022-05-31 08:49] VITALS: BP 165/71; PULSE 76; RESP 18; TEMP 36.8; O2SAT 94
[2022-05-31] MEDS: Enoxaparin 30 MG/0.3 ML Syringe SC (08:57)
[2022-05-31] MEDS: Senna/Docusate Sodium 1 Tablet 2 TABLET PO (08:57)
[2022-05-31] MEDS: Fluoxetine HCl 40 MG CAPSULE PO (08:57)
[2022-05-31] MEDS: Pantoprazole Sodium 40 MG Tablet PO (08:57)
[2022-05-31] MEDS: Gabapentin 100 MG Capsule PO ×3 (08:57→17:23)
[2022-05-31] MEDS: MethylPREDNISolone DosePak 4 MG BOX PO ×4 (08:58→20:05)
[2022-05-31] MEDS: Lidocaine 5% Patch 2 PATCH TOPICAL (08:58)
[2022-05-31] MEDS: tiZANidine HCl 2 MG Tablet 4 MG PO ×2 (13:55→20:06)
[2022-05-31 14:00] VITALS: BP 165/63; PULSE 77; RESP 18; TEMP 37.1; O2SAT 95
[2022-05-31] MEDS: MELATONIN 3 MG TABLET PO (20:05)
[2022-05-31 20:09] VITALS: BP 164/71; PULSE 78
[2022-05-31] MEDS: hydrALAZINE 20 MG/ML Vial 10 MG IV (20:09)
[2022-05-31] MEDS: 0.9% Saline Lock 10 ML Syringe IV (20:09)
[2022-05-31 20:10] VITALS: BP 164/71; PULSE 78; RESP 16; TEMP 36.9; O2SAT 96
[2022-05-31 21:00] VITALS: BP 113/54; PULSE 68
[2022-06-01] VITALS (9 sets, daily range): BP systolic 148–160; BP diastolic 60–78; PULSE 78–87; RESP 16–18; TEMP 36.9–37.4; O2SAT 94–98
[2022-06-01] MEDS: oxyCODONE 5 MG Tablet PO ×4 (00:45→22:19)
[2022-06-01] MEDS: Acetaminophen 325 MG Tablet 650 MG PO ×4 (00:45→22:18)
[2022-06-01] MEDS: tiZANidine HCl 2 MG Tablet 4 MG PO ×3 (05:27→22:18)
[2022-06-01] MEDS: Polyethylene Glycol 3350 17 GM PACKET PO (08:27)
[2022-06-01] MEDS: Pantoprazole Sodium 40 MG Tablet PO (08:28)
[2022-06-01] MEDS: Fluoxetine HCl 40 MG CAPSULE PO (08:28)
[2022-06-01] MEDS: Gabapentin 100 MG Capsule PO ×3 (08:28→18:21)
[2022-06-01] MEDS: Senna/Docusate Sodium 1 Tablet 2 TABLET PO ×2 (08:28→22:18)
[2022-06-01] MEDS: MethylPREDNISolone DosePak 4 MG BOX PO ×3 (08:29→22:18)
--- NOTE | 2022-06-01 08:37 | PCM.PN.HOSP ---
Subjective Subjective Follow-up for severe back pain, L1 vertebral fracture with spinal stenosis Patient has severe back pain with no relief for last 3 days, 10/10 intensity worse with movement. She moved her bowel day before yesterday and passing flatus. Objective Data Objective Data Vital Signs: Vital Signs Temp Pulse Resp BP Pulse Ox O2 Del Method 98.5 F 78 16 155/61 H 96 Room Air 06/01/22 02:00 06/01/22 02:00 06/01/22 02:00 06/01/22 02:00 06/01/22 02:00 06/01/22 02:00 Oxygen Delivery Method Room Air Weight: 182 lb 5.156 oz Body Mass Index (BMI) 31.8 Lab / Micro Data Result Diagrams: 05/29/22 05:05 05/29/22 05:05 Physical Exam Narrative Seen and examined. BP fluctuates. Lovenox on hold. N.p.o. after breakfast General: Alert, Oriented x3, Cooperative HEENT: Atraumatic, PERRLA, EOMI, Normocephalic Oral: No Gingival or Mucosal Lesions/ Ulcerations Neck: Supple, No JVD, Negative Carotid Bruits Lungs: Air entry diminished in bilateral lung bases. No crepitation/rhonchi Cardiovascular: Regular rate, Regular Rhythm, Normal S1, Normal S2, No murmurs Abdomen: Bowel Sounds Present, Soft, Non Tender, Non-Distended : No renal angle tenderness. No suprapubic tenderness. Extremities: No edema, Capillary Refill Less than 3 Seconds Skin: No rashes, No breakdown Musculoskeletal/spine: History of TKR. Bilateral hip arthritis and mild tenderness. Moderate to severe tenderness present between T12-L4, paraspinal muscle tenderness bilaterally more on left side. ROM of spine severely restricted. Neurological: Cranial nerves II-XII grossly intact, DTR 2+/4. Muscle strength 4/5 at major joints of lower extremities Psych/Mental Status: Flat affect. Assessment & Plan Assessment/Plan (1) Intractable back pain: (2) Abnormal CT of the abdomen: PLAN: Plan This is a 86-year-old female admitted with back pain predominantly lower back pain and bilateral hip pain for 10 days. 1. Intractable lower back pain probably due to L1 compression wedge fracture most likely pathological due to osteoporosis: [facility] Patient does not have sciatica or radicular pain or acute neurological symptoms to account for cauda equina. Abdomen pelvis CT shows spondylolisthesis of L4 and L5. MRI lumbar spine was done which shows recent compression fracture of inferior endplate of L1 with mild spinal stenosis multilevel disc disease and facet arthropathy creating severe spinal stenosis at level of L4-L5. I discussed with spine surgeon Dr. Edenilson Ricci due to patient's preference and pain management Dr. Menjivar. Dr. Menjivar is out of town and probably will come in Wednesday noon. He will evaluate and potential plan of kyphoplasty on Wednesday afternoon/evening or Wednesday morning. After discussion with Dr. Edenilson dias, he would like to have follow-up call on Wednesday. This was communicated back to the patient. 05/31: Patient still complaining of back pain 06/01. Patient on high dose of pain medications. Tizanidine increased to 4 mg every 8 hourly. Risk and benefit of opioids discussed stating risk for ileus/pseudo bowel obstruction, altered mental status, encephalopathy confusion, hypotension and respiratory failure. Rest plan as mentioned above. 06/01: No change in back pain in last 3 days. N.p.o. after breakfast for probable evaluation by Dr. Wells in afternoon and kyphoplasty.Enoxaparin is discontinued. I also talked to the spine surgeon Dr. Edenilson Lopez today and gave my follow-up after previous call on 05/30. He will come and see the patient. Plan of management discussed with the patient and her daughter near the bedside 2. Constipation: Patient did not had bowel movement for 2 days. Started on bisacodyl 5 mg oral and 10 mg suppository. Continue senna S and MiraLAX. Lipase is normal. Patient has mild abdominal discomfort/bloating probably due to constipation. 05/31: Patient had good bowel movement. Continue bowel regimen. 3 fatty liver: MRCP was done which shows a small pancreatic cyst and left lateral lobe cyst in the liver. Pancreatic cysts are subcentimeter. Suggested contrast-enhanced MRCP in 2 years. Elevated blood pressures/labile BP:. Related to pain. On as needed hydralazine. Hyperlipidemia -Cholesterol in February 2021 shows a total cholesterol of 239/LDL of 134/HDL 64 -Patient not on any outpatient regimen -Commend follow-up with outpatient physician especially with noted above fatty liver as this is likely contributing GERD -Continue PPI Obesity -Recommend weight loss -BMI 31.8 -Complicates treatment, prognosis, outcomes Anxiety/depression -Continue fluoxetine History of tobacco abuse -Can encourage continued cessation DVT prophylaxis -SCDs -Lovenox 30 mg subcu daily. Last dose on Wednesday morning. CODE STATUS -full code Total time of the visit including total time spent in counseling or coordination of care, (more than 50% of the total time, spent in obtaining medical information from nurses and other ancillary care providers,explaining to the patient about labs, imaging, diagnosis and management of active complex medical conditions), discussion with orthopedic surgeon, Dr. Patterson, spine surgeon Dr. Edenilson Ricci and pain management Dr. Wells, review of labs and imaging and update given to patient and her daughter is 40 minutes. Charges/Coding Visit Charges Inpatient E&M: 30943 Subs Hosp L3
[2022-06-01] MEDS: Lidocaine 5% Patch 2 PATCH TOPICAL (10:47)
[2022-06-01 11:50] LABS: Absolute Lymphocyte Count 0.91 X10^3/uL (0.83-4.51); Absolute Neutrophil Count 9.9 X10^3/uL (2.0-7.7); Basophil# 0.02 X10^3/uL; Basophil% 0.2 % (0-1); Hematocrit 39.1 % (37-47); Hemoglobin 12.1 g/dL (12.0-15.0); Lymphocyte # 0.91 X10^3/ul (0.83-4.51); Lymphocyte % 7.5 % (19-41); Mean Corp Hgb Conc 30.9 g/dL (32-36); Mean Corpuscular Hgb 32.2 pg (27.0-32.0); Mean Platelet Vol. 9.2 fl (6.2-12.0); Monocyte# 1.14 X10^3/uL; Monocyte% 9.4 % (0-10); NRBC Flagged by Analyzer 0 % (0-5); Neutrophil # 9.89 X10^3/uL (2.7-7.7); Neutrophil % 81.7 % (47-70); Platelet Count 278 K/mm3 (150-450); RBC Distribution Width SD 45.8 fl (35.1-43.9); Red Blood Count 3.76 M/mm3 (4.2-5.4); White Blood Count 12.1 K/mm3 (4.4-11.0)
[2022-06-01 12:03] LABS: Anion Gap 9 (5-15); BUN 20 mg/dL (7-18); BUN/Creat Ratio 29.4 RATIO (10-20); Calcium,Total 8.3 mg/dL (8.5-10.1); Chloride 100 mmol/L (98-107); Creatinine, Serum 0.68 mg/dL (0.55-1.02); EST Glomerular Filtration Rate 87 mL/min (>60); Est Glom Filt Rate - Afr Amer 106 mL/min (>60); Estimated Creatinine Clearance 34.64 ml/min; Glucose 108 mg/dL (74-106); Potassium 4.1 mmol/L (3.5-5.1); Sodium Level 133 mmol/L (136-145)
[2022-06-01] MEDS: HYDROmorphone 0.5 MG/0.5 ML SYRINGE IV (14:22)
[2022-06-01] MEDS: 0.9% Saline Lock 10 ML Syringe IV (14:22)
[2022-06-01] MEDS: Ondansetron 4 MG/2 ML Vial IV (14:22)
--- NOTE | 2022-06-01 14:45 | CASEMGMT ---
RN CM in to pt room, pt dtr at bedside. Discussed DC planning and pt and dtr state at this time they cannot determine if pt can go home until sees pt as well as Dr. Kellogg. Per rounds, to consult today. MAMTA OLIVEROS to follow.
--- NOTE | 2022-06-01 17:20 | CONS.ORTHO ---
HPI Consult Data Date of Consult: 06/01/22 HPI Narrative Reason for Consultation: Lumbar compression fracture HPI Narrative: The patient is an 86-year-old female with complaints of acute back pain for the past few weeks. Onset was insidious and she denies any history of back injuries or back surgeries. She describes pain in the thoracolumbar region that is worse with activity and relieved with rest. She has never had any back injections. She denies any acute numbness tingling weakness or changes in bowel or bladder function. She is currently admitted for intractable back pain. A lumbar MRI was performed showing an acute/subacute compression fracture at L1. Pain management, Dr. Wells, has been consulted and has scheduled a kyphoplasty. [facility] Medical History (Updated 05/30/22 @ 10:55 by Raghavendra Patterson MD) Anxiety and depression Compression fracture of L1 lumbar vertebra Former tobacco use GERD (gastroesophageal reflux disease) Obesity Osteoarthritis of left hip Spondylolisthesis at L4-L5 level Home Medications acetaminophen 500 mg tablet (Tylenol Extra Strength) 1,000 mg PO Q6H PRN Back Pain 05/25/22 [History Last Taken 05/28/22] esomeprazole magnesium 20 mg capsule,delayed release (Nexium) 20 mg PO DAILY 05/25/22 [History Last Taken 05/27/22] fluoxetine 40 mg capsule (Prozac) 40 mg PO DAILY 05/25/22 [History Last Taken 05/27/22] ibuprofen 200 mg capsule 200 mg PO Q6H PRN Back Pain 05/25/22 [History Last Taken 05/28/22] Allergy/AdvReac Type Severity Reaction Status Date / Time No Known Allergies Allergy Verified 05/28/22 11:08 Family History Mother CVA (cerebral vascular accident) Father CVA (cerebral vascular accident) Surgical History History of right knee joint replacement Social History (Updated 05/28/22 @ 17:[address] Hui Bynum MD) household members: none Smoking Status: Former smoker how long ago did patient quit smoking: Quit ~ 40 years prior, 1 ppd since teen until quit. alcohol intake: current alcohol intake frequency: a few times a month substance use type: does not use Vital Signs Vital Signs Vital Signs: 05/31/22 20:09 05/31/22 20:10 05/31/22 21:00 Temperature 98.4 F Temperature Source Temporal Pulse Rate 78 78 68 Pulse Strength Respiratory Rate 16 Blood Pressure 164/71 H 164/71 H Blood Pressure [BP] 113/54 L Blood Pressure Mean 102 Blood Pressure Mean [BP] 73 Blood Pressure Source Monitor Blood Pressure Source [BP] Monitor Blood Pressure Position Semi-Fowlers Blood Pressure Position [BP] Semi-Fowlers Blood Pressure Location Left Arm Blood Pressure Location [BP] Right Arm Pulse Ox 96 Oxygen Delivery Method Room Air 05/31/22 21:33 06/01/22 02:00 06/01/22 08:41 Temperature 98.5 F Temperature Source Temporal Pulse Rate 78 Pulse Strength Normal (2+) Respiratory Rate 16 Blood Pressure 155/61 H Blood Pressure [BP] Blood Pressure Mean 92 Blood Pressure Mean [BP] Blood Pressure Source Monitor Blood Pressure Source [BP] Blood Pressure Position Semi-Fowlers Blood Pressure Position [BP] Blood Pressure Location Left Arm Blood Pressure Location [BP] Pulse Ox 96 97 Oxygen Delivery Method Room Air 06/01/22 08:00 06/01/22 08:00 06/01/22 08:30 Temperature 99.3 F H Temperature Source Oral Pulse Rate 87 Pulse Strength Normal (2+) Respiratory Rate 16 Blood Pressure 148/62 H Blood Pressure [BP] Blood Pressure Mean 90 Blood Pressure Mean [BP] Blood Pressure Source Monitor Blood Pressure Source [BP] Blood Pressure Position Sitting Blood Pressure Position [BP] Blood Pressure Location Right Arm Blood Pressure Location [BP] Pulse Ox 94 97 Oxygen Delivery Method Room Air 06/01/22 14:00 06/01/22 15:03 06/01/22 16:14 Temperature 98.6 F 98.6 F Temperature Source Oral Oral Pulse Rate 86 86 Pulse Strength Respiratory Rate 16 16 Blood Pressure 160/78 H 160/78 H Blood Pressure [BP] Blood Pressure Mean 105 105 Blood Pressure Mean [BP] Blood Pressure Source Monitor Blood Pressure Source [BP] Blood Pressure Position Semi-Fowlers Blood Pressure Position [BP] Blood Pressure Location Left Arm Blood Pressure Location [BP] Pulse Ox 98 98 95 Oxygen Delivery Method Room Air Room Air Room Air Weight Weight: 182 lb 5.156 oz Body Mass Index (BMI) 31.8 Physical Exam Const alert, oriented x3 and no apparent distress General Appearance: cooperative, comfortable and well kempt HEENT normocephalic and head/scalp atraumatic Eyes EOMs intact bilaterally and conjunctivae normal Neck full ROM General: normal visual inspection Chest inspection of chest normal and palpation of chest normal Resp normal respiratory effort and normal air movement Effort and Inspection: able to speak in complete sentences Cardio regular rate and peripheral pulses 2+ throughout GI soft to palpation, non-tender and non-distended Back/Spine Back/Spine Narrative: Mild tenderness at the posterior thoracolumbar region. Cervical Spine: cervical ROM normal Thoracic Spine / Upper Back: normal to inspection Lumbar Spine / Lower Back: normal to inspection Extremity normal to inspection, full ROM, normal capillary refill, no clubbing, cyanosis or edema and no calf tenderness Skin no rashes or lesions noted General Skin Exam: no breakdown Neuro oriented x3, CN's II-XII intact bilaterally, moves all extremities, no focal motor deficits, no sensory deficits noted and deep tendon reflexes 2+ bilaterally Motor Exam: strength 5/5 throughout Lab / Micro Data Result Diagrams: 06/01/22 11:40 06/01/22 11:40 Labs: Laboratory Results - last 24 hr 06/01/22 11:40: Sodium 133 L, Potassium 4.1, Chloride 100, Carbon Dioxide 24.0, Anion Gap 9, BUN 20 H, Creatinine 0.68, Estim Creat Clear Calc 34.64, Est GFR (MDRD) Af Amer 106, Est GFR (MDRD) Non-Af 87, BUN/Creatinine Ratio 29.4 H, Glucose 108 H, Calcium 8.3 L 06/01/22 11:40: WBC 12.1 H, RBC 3.76 L, Hgb 12.1, Hct 39.1, MCV 104.0 H D, MCH 32.2 H, MCHC 30.9 L D, RDW Std Deviation 45.8 H, RDW Coeff of Lucila 12.0, Plt Count 278, MPV 9.2, Immature Gran % (Auto) 1.200 H, Neut % (Auto) 81.7 H, Lymph % (Auto) 7.5 L, Dent % (Auto) 9.4, Eos % (Auto) 0.0, Baso % (Auto) 0.2, Absolute Neuts (auto) 9.9 H, Absolute Lymphs (auto) 0.91, Nucleated RBC % 0 Assessment & Plan Assessment/Plan (1) Compression fracture of L1 lumbar vertebra: PLAN: I had a lengthy discussion with the patient. I reviewed her imaging with her. Lumbar MRI dated 05/29/2022 shows acute/subacute compression deformity of the L1 vertebral body with loss of about 20% vertebral body height. Minimal retropulsion. She is currently scheduled for a kyphoplasty with pain management. In the meantime I recommend pain control and mobilization as tolerated. Upon discharge she can follow-up with me as needed in the clinic. She understands and agrees with the treatment plan.
[2022-06-01] MEDS: MELATONIN 3 MG TABLET PO (22:18)
[2022-06-02] VITALS (9 sets, daily range): BP systolic 136–152; BP diastolic 56–69; PULSE 65–91; RESP 15–16; TEMP 36.9–37.5; O2SAT 93–95
[2022-06-02 04:52] LABS: Absolute Lymphocyte Count 1.14 X10^3/uL (0.83-4.51); Basophil# 0.01 X10^3/uL; Basophil% 0.1 % (0-1); Eosinophil# 0.01 X10^3/uL; Eosinophils% 0.1 % (0-5); Hematocrit 36.7 % (37-47); Hemoglobin 12.1 g/dL (12.0-15.0); Lymphocyte # 1.14 X10^3/ul (0.83-4.51); Lymphocyte % 11.1 % (19-41); Mean Corpuscular Hgb 33.1 pg (27.0-32.0); Mean Corpuscular Volume 100.3 fL (81-99); Mean Platelet Vol. 9.2 fl (6.2-12.0); Monocyte# 1.02 X10^3/uL; NRBC Flagged by Analyzer 0 % (0-5); Neutrophil # 7.97 X10^3/uL (2.7-7.7); Neutrophil % 77.8 % (47-70); Platelet Count 297 K/mm3 (150-450); RBC Distribution Width SD 44.8 fl (35.1-43.9); Red Blood Count 3.66 M/mm3 (4.2-5.4); White Blood Count 10.2 K/mm3 (4.4-11.0)
[2022-06-02] MEDS: oxyCODONE 5 MG Tablet PO ×4 (04:54→22:21)
[2022-06-02] MEDS: tiZANidine HCl 2 MG Tablet 4 MG PO ×3 (04:55→22:20)
--- NOTE | 2022-06-02 07:13 | PN.HOSP_ITS ---
Subjective Subjective Follow-up for acute on chronic back pain. Patient has not moved bowel for last 2 days. On senna S and MiraLAX. Plan for kyphoplasty procedure on Wednesday tomorrow. Objective Data Objective Data Vital Signs: Vital Signs Temp Pulse Resp BP Pulse Ox O2 Del Method 98.9 F 65 16 136/59 H 95 Room Air 06/02/22 03:00 06/02/22 03:00 06/02/22 03:00 06/02/22 03:00 06/02/22 03:00 06/02/22 03:00 Oxygen Delivery Method Room Air Weight: 179 lb 0.246 oz Body Mass Index (BMI) 31.8 Intake & Output: Intake and Output for Last 24 Hours 05/31/22 06/01/22 06/02/22 23:59 23:59 23:59 Intake Total 200 / 200 Balance 200 / 200 Lab / Micro Data Result Diagrams: 06/02/22 04:36 06/01/22 11:40 Labs: Laboratory Results - last 24 hr 06/01/22 11:40: Sodium 133 L, Potassium 4.1, Chloride 100, Carbon Dioxide 24.0, Anion Gap 9, BUN 20 H, Creatinine 0.68, Estim Creat Clear Calc 34.64, Est GFR (MDRD) Af Amer 106, Est GFR (MDRD) Non-Af 87, BUN/Creatinine Ratio 29.4 H, Glucose 108 H, Calcium 8.3 L 06/01/22 11:40: WBC 12.1 H, RBC 3.76 L, Hgb 12.1, Hct 39.1, MCV 104.0 H D, MCH 32.2 H, MCHC 30.9 L D, RDW Std Deviation 45.8 H, RDW Coeff of Lucila 12.0, Plt Count 278, MPV 9.2, Immature Gran % (Auto) 1.200 H, Neut % (Auto) 81.7 H, Lymph % (Auto) 7.5 L, Williamson % (Auto) 9.4, Eos % (Auto) 0.0, Baso % (Auto) 0.2, Absolute Neuts (auto) 9.9 H, Absolute Lymphs (auto) 0.91, Nucleated RBC % 0 06/02/22 04:36: WBC 10.2, RBC 3.66 L, Hgb 12.1, Hct 36.7 L, MCV 100.3 H, MCH 33.1 H, MCHC 33.0 D, RDW Std Deviation 44.8 H, RDW Coeff of Lucila 12.0, Plt Count 297, MPV 9.2, Immature Gran % (Auto) 0.900, Neut % (Auto) 77.8 H, Lymph % (Auto) 11.1 L, Williamson % (Auto) 10.0, Eos % (Auto) 0.1, Baso % (Auto) 0.1, Absolute Neuts (auto) 8.0 H, Absolute Lymphs (auto) 1.14, Nucleated RBC % 0 Physical Exam Narrative Seen and examined. BP fluctuates. Lovenox on hold. N.p.o. after midnight. General: Alert, Oriented x3, Cooperative HEENT: Atraumatic, PERRLA, EOMI, Normocephalic Oral: No Gingival or Mucosal Lesions/ Ulcerations Neck: Supple, No JVD, Negative Carotid Bruits Lungs: Air entry diminished in bilateral lung bases. No crepitation/rhonchi Cardiovascular: Regular rate, Regular Rhythm, Normal S1, Normal S2, No murmurs Abdomen: Bowel Sounds Present, Soft, Non Tender, Non-Distended : No renal angle tenderness. No suprapubic tenderness. Extremities: No edema, Capillary Refill Less than 3 Seconds Skin: No rashes, No breakdown Musculoskeletal/spine: History of TKR. Bilateral hip arthritis and mild tenderness. Moderate tenderness present between T12-L4, paraspinal muscle tenderness bilaterally more on left side. ROM of spine severely restricted. Neurological: Cranial nerves II-XII grossly intact, DTR 2+/4. Muscle strength 4/5 at major joints of lower extremities Psych/Mental Status: Flat affect. Assessment & Plan Assessment/Plan (1) Intractable back pain: (2) Abnormal CT of the abdomen: PLAN: Plan This is a 86-year-old female admitted with back pain predominantly lower back pain and bilateral hip pain for 10 days. 1. Intractable lower back pain probably due to L1 compression wedge fracture most likely pathological due to osteoporosis: [facility] Patient does not have sciatica or radicular pain or acute neurological symptoms to account for cauda equina. Abdomen pelvis CT shows spondylolisthesis of L4 and L5. MRI lumbar spine was done which shows recent compression fracture of inferior endplate of L1 with mild spinal stenosis multilevel disc disease and facet arthropathy creating severe spinal stenosis at level of L4-L5. I discussed with spine surgeon Dr. Edenilson Ricci due to patient's preference and pain management Dr. Menjivar. Dr. Menjivar is out of town and probably will come in Wednesday noon. He will evaluate and potential plan of kyphoplasty on Wednesday afternoon/evening or Wednesday morning. After discussion with Dr. Edenilson dias, he would like to have follow-up call on Wednesday. This was communicated back to the patient. 05/31: Patient still complaining of back pain 06/01. Patient on high dose of pain medications. Tizanidine increased to 4 mg every 8 hourly. Risk and benefit of opioids discussed stating risk for ileus/pseudo bowel obstruction, altered mental status, encephalopathy confusion, hypotension and respiratory failure. Rest plan as mentioned above. 06/01: No change in back pain in last 3 days. N.p.o. after breakfast for probable evaluation by Dr. Wells in afternoon and kyphoplasty.Enoxaparin is discontinued. I also talked to the spine surgeon Dr. Edenilson Lopez today and gave my follow-up after previous call on 05/30. He will come and see the patient. Plan of management discussed with the patient and her daughter near the bedside 06/02: Because of a scheduling problem, procedure could not be scheduled today therefore tomorrow at 1 PM. N.p.o. 6 hours prior to procedure. Plan discussed with the patient and her daughter near the bedside. Rest continue same. Patient seen by Dr. Kellogg, consult reviewed and appreciated. 2. Constipation: Patient did not had bowel movement for 2 days. Started on bisacodyl 5 mg oral and 10 mg suppository. Continue senna S and MiraLAX. Lipase is normal. Patient has mild abdominal discomfort/bloating probably due to constipation. 05/31: Patient had good bowel movement. Continue bowel regimen. 06/02: Dulcolax 10 mg ordered. Patient did not had bowel movement for 2 days 3 fatty liver: MRCP was done which shows a small pancreatic cyst and left lateral lobe cyst in the liver. Pancreatic cysts are subcentimeter. Suggested contrast-enhanced MRCP in 2 years. Elevated blood pressures/labile BP:. Related to pain. On as needed hydralazine. Hyperlipidemia -Cholesterol in February 2021 shows a total cholesterol of 239/LDL of 134/HDL 64 -Patient not on any outpatient regimen -Commend follow-up with outpatient physician especially with noted above fatty liver as this is likely contributing GERD -Continue PPI Obesity -Recommend weight loss -BMI 31.8 -Complicates treatment, prognosis, outcomes Anxiety/depression -Continue fluoxetine History of tobacco abuse -Can encourage continued cessation DVT prophylaxis -SCDs -Lovenox 30 mg subcu daily. Last dose on Wednesday morning. CODE STATUS -full code Charges/Coding Visit Charges Inpatient E&M: 52985 Subs Hosp L2
[2022-06-02] MEDS: Fluoxetine HCl 40 MG CAPSULE PO (07:52)
[2022-06-02] MEDS: Gabapentin 100 MG Capsule PO ×3 (07:52→16:32)
[2022-06-02] MEDS: Senna/Docusate Sodium 1 Tablet 2 TABLET PO ×2 (07:52→22:20)
[2022-06-02] MEDS: Pantoprazole Sodium 40 MG Tablet PO (07:52)
[2022-06-02] MEDS: MethylPREDNISolone DosePak 4 MG BOX PO ×2 (07:53→22:20)
[2022-06-02] MEDS: Polyethylene Glycol 3350 17 GM PACKET PO (07:53)
[2022-06-02] MEDS: HYDROmorphone 0.5 MG/0.5 ML SYRINGE IV (08:02)
[2022-06-02] MEDS: 0.9% Saline Lock 10 ML Syringe IV (08:02)
[2022-06-02] MEDS: Lidocaine 5% Patch 2 PATCH TOPICAL (08:07)
--- NOTE | 2022-06-02 11:33 | CASEMGMT ---
Social Work SW in to pt room to discuss discharge plan. SW introduced self and role at the hospital. Pt agreeable to discussing d/c plan. A printed list of SNF providers including quality and resource use data and consistent with the patient?s preferred geographic region, medical needs, and insurance network via the [employer] Link.?Pt's preferred providers are [facility], [facility], then [facility]. Pt hopeful will not need SNF after procedure tomorrow but agreeable to beginning process of plan for SNF to prepare. SW informed Pricilla Sagastume, discharge accounting manager assistant controller of pt choice. Pricilla to send referral to [facility]. PLAN: [facility], pending acceptance and precert JD Singh
--- NOTE | 2022-06-02 11:55 | CASEMGMT ---
Discharge Scrap Kettle Tender Pricilla oseguera/tila credentialing assistant sent referral to [facility] swing bed unit via [facility] Plan: [facility] Bed, Waiting Acceptance Pricilla Teresa Discharge Scrap Kettle Tender
[2022-06-02] MEDS: Acetaminophen 325 MG Tablet 650 MG PO ×3 (12:16→22:21)
[2022-06-02] MEDS: Bisacodyl 10 MG Suppository RC (13:32)
--- NOTE | 2022-06-02 15:15 | CASEMGMT ---
Discharge Hop Farm Worker Pricilla bedoya assistant director of residence life called [facility]. Referral is being reviewed. Will follow up Plan: [facility] Acceptance
[2022-06-02] MEDS: MELATONIN 3 MG TABLET PO (22:20)
[2022-06-03] VITALS (12 sets, daily range): BP systolic 148–173; BP diastolic 60–82; PULSE 73–97; RESP 14–18; TEMP 36.4–37.9; O2SAT 94–97; BMI 32.1
[2022-06-03] MEDS: Acetaminophen 325 MG Tablet 650 MG PO ×2 (04:14→17:34)
[2022-06-03] MEDS: tiZANidine HCl 2 MG Tablet 4 MG PO ×3 (05:53→23:13)
--- NOTE | 2022-06-03 05:55 | EKG12_ITS ---
Test Reason : PRE OP Blood Pressure : / mmHG Vent. Rate : 073 BPM Atrial Rate : 073 BPM P-R Int : 128 ms QRS Dur : 074 ms QT Int : 380 ms P-R-T Axes : 047 040 036 degrees QTc Int : 418 ms Normal sinus rhythm Normal ECG Confirmed by JEISON BILLY, FARHANA ([id number]), video news editor RODERICK CHAMBERLAIN ([id number]) on 06/04/2022 1:06:14 PM Referred By: JUAN R Confirmed By:FARHANA MCHUGH MD
[2022-06-03] MEDS: HYDROmorphone 0.5 MG/0.5 ML SYRINGE IV (06:03)
[2022-06-03] MEDS: 0.9% Saline Lock 10 ML Syringe IV (06:04)
[2022-06-03 06:19] LABS: Absolute Lymphocyte Count 1.48 X10^3/uL (0.83-4.51); Absolute Neutrophil Count 9.6 X10^3/uL (2.0-7.7); Basophil# 0.02 X10^3/uL; Basophil% 0.2 % (0-1); Eosinophil# 0.01 X10^3/uL; Eosinophils% 0.1 % (0-5); Hemoglobin 12.6 g/dL (12.0-15.0); Lymphocyte # 1.48 X10^3/ul (0.83-4.51); Lymphocyte % 11.9 % (19-41); Mean Corp Hgb Conc 32.3 g/dL (32-36); Mean Corpuscular Hgb 31.9 pg (27.0-32.0); Mean Corpuscular Volume 98.7 fL (81-99); Mean Platelet Vol. 9.5 fl (6.2-12.0); Monocyte# 1.24 X10^3/uL; Monocyte% 9.9 % (0-10); NRBC Flagged by Analyzer 0 % (0-5); Neutrophil # 9.56 X10^3/uL (2.7-7.7); Neutrophil % 76.6 % (47-70); Platelet Count 343 K/mm3 (150-450); RBC Distribution Width CV 11.9 % (11.6-14.6); RBC Distribution Width SD 43.5 fl (35.1-43.9); Red Blood Count 3.95 M/mm3 (4.2-5.4); White Blood Count 12.5 K/mm3 (4.4-11.0)
[2022-06-03 06:30] LABS: Prothrombin Time (Protime)PT. 12.6 SECONDS (11.7-14.9)
[2022-06-03 06:44] LABS: Anion Gap 7 (5-15); BUN 22 mg/dL (7-18); BUN/Creat Ratio 30.9 RATIO (10-20); Calcium,Total 8.7 mg/dL (8.5-10.1); Chloride 101 mmol/L (98-107); Creatinine, Serum 0.71 mg/dL (0.55-1.02); EST Glomerular Filtration Rate 83 mL/min (>60); Est Glom Filt Rate - Afr Amer 100 mL/min (>60); Estimated Creatinine Clearance 34.64 ml/min; Glucose 106 mg/dL (74-106); Potassium 4.3 mmol/L (3.5-5.1); Sodium Level 134 mmol/L (136-145)
[2022-06-03] MEDS: Bisacodyl 10 MG Suppository RC (09:22)
[2022-06-03] MEDS: Lactated Ringers 1,000 ML 15 ML IV (09:28)
--- NOTE | 2022-06-03 10:29 | CASEMGMT ---
Discharge Cattle Dehorner Pricilla oseguera/tila real estate assistant reached out to [facility]. No beds are available at this moment. Pricilla notified ANDREW Jones. Plan: patient 2nd choice needed. Pricilla Teresa Discharge [place]
--- NOTE | 2022-06-03 10:36 | CASEMGMT ---
Discharge Firmware Manager Pricilla called Robina in TCU. Karen already made Robina aware of patient. Patient has been accepted at TCU. Robina is going to go head and start pre-cert. Plan: TCU, Waiting pre-cert approval. Pricilla Teresa Discharge Firmware Manager
--- NOTE | 2022-06-03 11:39 | CASEMGMT ---
Social Work SW in to pt room to notify that [facility] unable to accept. Pt voiced understanding. Pt notified [facility] has accepted and started precert. Pt understanding. PLAN: [facility], pending precert JD Singh
--- NOTE | 2022-06-03 12:14 | PN.HOSP_ITS ---
Subjective Subjective Seen and examined. Follow-up for back pain. Patient had not bowel movement for last 3 days. Passing flatus. Objective Data Objective Data Vital Signs: Vital Signs Temp Pulse Resp BP Pulse Ox O2 Del Method 99.0 F 78 14 148/66 H 95 Room Air 06/03/22 10:43 06/03/22 10:43 06/03/22 10:43 06/03/22 10:43 06/03/22 10:43 06/03/22 10:43 Oxygen Delivery Method Room Air Weight: 181 lb 3.52 oz Body Mass Index (BMI) 32.1 Intake & Output: Intake and Output for Last 24 Hours 06/01/22 06/02/22 06/03/22 23:59 23:59 23:59 Intake Total 200 / 200 0 / 0 Output Total 0 / 0 Balance 200 / 200 0 / 0 Lab / Micro Data Result Diagrams: 06/03/22 05:25 06/03/22 05:25 Labs: Laboratory Results - last 24 hr 06/03/22 05:25: WBC 12.5 H, RBC 3.95 L, Hgb 12.6, Hct 39.0, MCV 98.7, MCH 31.9, MCHC 32.3, RDW Std Deviation 43.5, RDW Coeff of Lucila 11.9, Plt Count 343, MPV 9.5, Immature Gran % (Auto) 1.300 H, Neut % (Auto) 76.6 H, Lymph % (Auto) 11.9 L , [place] % (Auto) 9.9, Eos % (Auto) 0.1, Baso % (Auto) 0.2, Absolute Neuts (auto) 9.6 H, Absolute Lymphs (auto) 1.48, Nucleated RBC % 0 06/03/22 05:25: PT 12.6, INR 1.0 06/03/22 05:25: Sodium 134 L, Potassium 4.3, Chloride 101, Carbon Dioxide 26.0, Anion Gap 7, BUN 22 H, Creatinine 0.71, Estim Creat Clear Calc 34.64, Est GFR (MDRD) Af Amer 100, Est GFR (MDRD) Non-Af 83, BUN/Creatinine Ratio 30.9 H, Glucose 106, Calcium 8.7 Physical Exam Narrative Seen and examined. BP fluctuates. Lovenox on hold. N.p.o. after midnight. General: Alert, Oriented x3, Cooperative HEENT: Atraumatic, PERRLA, EOMI, Normocephalic Oral: No Gingival or Mucosal Lesions/ Ulcerations Neck: Supple, No JVD, Negative Carotid Bruits Lungs: Air entry diminished in bilateral lung bases. No crepitation/rhonchi Cardiovascular: Regular rate, Regular Rhythm, Normal S1, Normal S2, No murmurs Abdomen: Bowel Sounds Present, Soft, Non Tender, Non-Distended : No renal angle tenderness. No suprapubic tenderness. Extremities: No edema, Capillary Refill Less than 3 Seconds Skin: No rashes, No breakdown Musculoskeletal/spine: History of TKR. Bilateral hip arthritis and mild tenderness. Moderate tenderness present between T12-L4, paraspinal muscle tenderness. ROM of spine severely restricted. Neurological: Cranial nerves II-XII grossly intact, DTR 2+/4. Muscle strength 4/5 at major joints of lower extremities Psych/Mental Status: Flat affect. Assessment & Plan Assessment/Plan (1) Intractable back pain: (2) Abnormal CT of the abdomen: PLAN: Plan This is a 86-year-old female admitted with back pain predominantly lower back pain and bilateral hip pain for 10 days. 1. Intractable lower back pain probably due to L1 compression wedge fracture most likely pathological due to osteoporosis: Patient is being admitted on [facility] floor. Patient does not have sciatica or radicular pain or acute neurological symptoms to account for cauda equina. Abdomen pelvis CT shows spondylolisthesis of L4 and L5. MRI lumbar spine was done which shows recent compression fracture of inferior endplate of L1 with mild spinal stenosis multilevel disc disease and facet arthropathy creating severe spinal stenosis at level of L4-L5. I discussed with spine surgeon Dr. Edenilson Ricci due to patient's preference and pain management Dr. Menjivar. Dr. Menjivar is out of town and probably will come in Wednesday noon. He will evaluate and potential plan of kyphoplasty on Wednesday afternoon/evening or Wednesday morning. After discussion with Dr. Edenilson dias, he would like to have follow-up call on Wednesday. This was communicated back to the patient. 05/31: Patient still complaining of back pain 06/01. Patient on high dose of pain medications. Tizanidine increased to 4 mg every 8 hourly. Risk and benefit of opioids discussed stating risk for ileus/pseudo bowel obstruction, altered mental status, encephalopathy confusion, hypotension and respiratory failure. Rest plan as mentioned above. 06/01: No change in back pain in last 3 days. N.p.o. after breakfast for probable evaluation by Dr. Wells in afternoon and kyphoplasty.Enoxaparin is discontinued. I also talked to the spine surgeon Dr. Edenilson Lopez today and gave my follow-up after previous call on 05/30. He will come and see the patient. Plan of management discussed with the patient and her daughter near the bedside 06/02: Because of a scheduling problem, procedure could not be scheduled today therefore tomorrow at 1 PM. N.p.o. 6 hours prior to procedure. Plan discussed with the patient and her daughter near the bedside. Rest continue same. Patient seen by Dr. Kellogg, consult reviewed and appreciated. 06/03: Plan for kyphoplasty today in afternoon 2. Constipation: Patient did not had bowel movement for 2 days. Started on bisacodyl 5 mg oral and 10 mg suppository. Continue senna S and MiraLAX. Lipase is normal. Patient has mild abdominal discomfort/bloating probably due to constipation. 05/31: Patient had good bowel movement. Continue bowel regimen. 06/02: Dulcolax 10 mg ordered. Patient did not had bowel movement for 2 days 06/03: Patient did not had bowel movement. Dulcolax suppository ordered as patient is n.p.o. she is on a strong bowel regimen. 3 fatty liver: MRCP was done which shows a small pancreatic cyst and left lateral lobe cyst in the liver. Pancreatic cysts are subcentimeter. Suggested contrast-enhanced MRCP in 2 years. Elevated blood pressures/labile BP:. Related to pain. On as needed hydralazine. Hyperlipidemia -Cholesterol in February 2021 shows a total cholesterol of 239/LDL of 134/HDL 64 -Patient not on any outpatient regimen -Commend follow-up with outpatient physician especially with noted above fatty liver as this is likely contributing GERD -Continue PPI Obesity -Recommend weight loss -BMI 31.8 -Complicates treatment, prognosis, outcomes Anxiety/depression -Continue fluoxetine History of tobacco abuse -Can encourage continued cessation DVT prophylaxis -SCDs -Lovenox 30 mg subcu daily. Last dose on Wednesday morning. CODE STATUS -full code Charges/Coding Visit Charges Inpatient E&M: 78987 Subs Hosp L2
--- NOTE | 2022-06-03 13:29 | RAD_ITS ---
HISTORY: FX L1. TECHNIQUE: 5 spot images. COMPARISON: Radiograph 05/19/2022. FINDINGS: VERTEBRAE: Instruments related to L1 compression fracture kyphoplasty. RAD/Spine 1 View Any Level IMPRESSION: Fluoroscopic guidance for L1 compression fracture kyphoplasty. Please refer to procedure note. Electronically Signed: Jeny Juares MD at 14:49 EDT ,
[2022-06-03] MEDS: Lidocaine 0.5% (50 ml) 50 ML Vial (14:25)
[2022-06-03] MEDS: proCHLORPERazine 10 MG/2 ML Vial 5 MG IV (16:02)
[2022-06-03] MEDS: Lidocaine 5% Patch 2 PATCH TOPICAL (16:51)
[2022-06-03] MEDS: Polyethylene Glycol 3350 17 GM PACKET PO (17:34)
[2022-06-03] MEDS: Gabapentin 100 MG Capsule PO (17:34)
[2022-06-03] MEDS: Fluoxetine HCl 40 MG CAPSULE PO (17:35)
[2022-06-03] MEDS: Senna/Docusate Sodium 1 Tablet 2 TABLET PO (17:35)
[2022-06-03] MEDS: Pantoprazole Sodium 40 MG Tablet PO (17:36)
[2022-06-03] MEDS: MethylPREDNISolone DosePak 4 MG BOX PO (17:41)
[2022-06-04 03:50] VITALS: BP 147/55; PULSE 76; RESP 18; TEMP 37.2; O2SAT 93; O2SAT 97
[2022-06-04] MEDS: tiZANidine HCl 2 MG Tablet 4 MG PO (05:33)
[2022-06-04 06:15] LABS: Absolute Lymphocyte Count 1.45 X10^3/uL (0.83-4.51); Absolute Neutrophil Count 8.6 X10^3/uL (2.0-7.7); Basophil# 0.01 X10^3/uL; Basophil% 0.1 % (0-1); Eosinophil# 0.02 X10^3/uL; Eosinophils% 0.2 % (0-5); Hematocrit 37.1 % (37-47); Lymphocyte # 1.45 X10^3/ul (0.83-4.51); Lymphocyte % 12.6 % (19-41); Mean Corp Hgb Conc 32.3 g/dL (32-36); Mean Corpuscular Hgb 32.3 pg (27.0-32.0); Mean Corpuscular Volume 99.7 fL (81-99); Mean Platelet Vol. 9.4 fl (6.2-12.0); Monocyte# 1.26 X10^3/uL; NRBC Flagged by Analyzer 0 % (0-5); Neutrophil # 8.63 X10^3/uL (2.7-7.7); Neutrophil % 75.1 % (47-70); Platelet Count 276 K/mm3 (150-450); RBC Distribution Width CV 12.1 % (11.6-14.6); RBC Distribution Width SD 44.6 fl (35.1-43.9); Red Blood Count 3.72 M/mm3 (4.2-5.4); White Blood Count 11.5 K/mm3 (4.4-11.0)
[2022-06-04 06:59] LABS: Anion Gap 8 (5-15); BUN 15 mg/dL (7-18); BUN/Creat Ratio 21.7 RATIO (10-20); Calcium,Total 8.4 mg/dL (8.5-10.1); Chloride 101 mmol/L (98-107); Creatinine, Serum 0.69 mg/dL (0.55-1.02); EST Glomerular Filtration Rate 86 mL/min (>60); Est Glom Filt Rate - Afr Amer 104 mL/min (>60); Estimated Creatinine Clearance 34.64 ml/min; Glucose 88 mg/dL (74-106); Potassium 4.2 mmol/L (3.5-5.1); Sodium Level 133 mmol/L (136-145)
[2022-06-04 07:50] VITALS: BP 133/60; PULSE 82; RESP 18; TEMP 37; O2SAT 95; BMI 31.4
[2022-06-04] MEDS: Gabapentin 100 MG Capsule PO ×2 (09:13→11:59)
[2022-06-04] MEDS: Polyethylene Glycol 3350 17 GM PACKET PO (09:16)
[2022-06-04] MEDS: Pantoprazole Sodium 40 MG Tablet PO (09:17)
[2022-06-04] MEDS: Lidocaine 5% Patch 2 PATCH TOPICAL (09:17)
[2022-06-04 09:26] VITALS: O2SAT 97
[2022-06-04 09:51] VITALS: O2SAT 96
--- NOTE | 2022-06-04 10:22 | CASEMGMT ---
Addendum entered by Sarah Agarwal 06/04/22 12:24: Received acceptance from [facility], pt and dtr aware. Original Note: RN DOMO notified by therapy that pt needs FWW. RN CM in to pt room, pt dtr at bedside. Pt up in chair and states doing well. Discussed HHC at home, pt has list that was given previously. Pt chose [facility] for therapy. Patient was provided a list of DME providers including quality and resource use data and consistent with the patient?s preferred geographic region, medical needs, and insurance network. Pt chose [facility]. Referral sent to [facility] via careport for FWW and email to liaison. Referral for HHC sent to [facility] via [employer] and tc to Breanne at [facility]. Will await acceptance. Updated SW that pt will go home with HHC.
--- NOTE | 2022-06-04 10:28 | CASEMGMT ---
Social Work SW notified by SUSAN Smith, that pt will discharge home instead of SNF. SW called Robina at [facility] to inform. Robina to cancel precert. Dispo: Home with Home Health DJ Singh
--- NOTE | 2022-06-04 10:55 | CASEMGMT ---
Addendum entered by Sarah Agarwal 06/04/22 10:57: Pt accepted by [facility]. Original Note: RN DOMO notified by therapy that pt needs FWW. RN DOMO in to pt room, pt dtr at bedside and pt sitting up in chair. Pt states she is doing well. Discussed dc planning. Pt feels she can return home with [facility], dtr agreeable. Pt had list that was previously given to her, she chose [facility]. Patient was provided a list of DME providers including quality and resource use data and consistent with the patient?s preferred geographic region, medical needs, and insurance network. [place] [facility] Referral for FWW sent to [facility] via careport and email to liaison. Referral sent to [facility] via careport and tc to Breanne, she will review and call back with acceptance. Pt denies further homegoing needs.
--- NOTE | 2022-06-04 11:44 | DCINST_ITS ---
Discharge Instructions Diet Discharge Diet: No restrictions Activity Discharge Activity: Return to Normal Activity and - (No lifting above 10 pounds) Weight Bearing Status: Full weight bearing Follow Up Care Test Results: Test results from this visit will be discussed in further detail at your follow- up appointment, if applicable. Discharge Plan Admission Admit Date/Time: 05/30/22 11:27 Primary Reason for Your Visit: Compression fracture L1 Attending Provider: Vin Rg Primary Care Provider: Lelo Stark Consulting Providers: Hui Bynum ; Elvie Lutz ; Edenilson Kellogg ; Neville Wells ; Priyank Muller Instructions Additional Instructions / Restrictions: You may take Tylenol 650 mg with each oxycodone, not to exceed a total of 3000 mg of Tylenol per day Recommend you take vitamin D3 2000 units daily Recommend you follow-up with your PCP regarding osteoporosis treatment You may take ibuprofen intermittently if necessary-400 mg at a time a maximum of every 8 hours Discharge Orders/Prescriptions Prescriptions: New oxycodone 5 mg Tablet 5 mg PO Q4H PRN PRN (Reason: Pain Score 4-6) 7 Days Qty: 20 0RF tizanidine 2 mg Tablet 4 mg PO Q8 Qty: 20 0RF Rx Instructions: 1/2 to one every 8 hrs for muscle spasm Continued esomeprazole magnesium [Nexium] 20 mg capsule,delayed release(DR/EC) 20 mg PO DAILY fluoxetine [Prozac] 40 mg capsule 40 mg PO DAILY acetaminophen [Tylenol Extra Strength] 500 mg tablet 1,000 mg PO Q6H PRN (Reason: Back Pain) ibuprofen 200 mg capsule 200 mg PO Q6H PRN (Reason: Back Pain) Referrals / Follow Up: Neville Wells MD [Med Staff - Active Staff] - See Referral Note (1 month-call office for appointment) Lelo Stark MD [Primary Care Provider] - Within 2 Weeks Disposition Disposition (needs filled in before D/C Order can be placed): Home Health Service
[2022-06-04 11:51] VITALS: BP 126/82; PULSE 72; RESP 18; TEMP 36.7; O2SAT 96
--- NOTE | 2022-06-04 12:46 | NURSING ---
prozac still has not arrived from Rx-ot aware to take at home
--- NOTE | 2022-06-04 18:43 | PCM.DC.SUM ---
Providers Date of Admission: 05/30/22 Date of Discharge: 06/04/22 Primary Care Physician: Dr. Lelo Stark MD Consultations 06/01/22 08:35 Consult: Orthopedics Routine Consulting Provider: Edenilson Kellogg Reason for Consult: Lumbar back pain, spinal stenosis EMERGENT Consult: No Notified: Yes Date Notified: 05/30/22 Time Notified: 12:30 Method of Notification: Verbal Consult: Pain Management Routine Consulting Provider: Neville Wells Reason for Consult: L1 collapsed wedge vertebral fracture, L spinal stenosis EMERGENT Consult: No Notified: Yes Date Notified: 05/30/22 Time Notified: 11:00 Method of Notification: Verbal Reason For Visit: INTRACTABLE BACK, HIP PAIN Diagnosis Discharge Diagnosis (1) Intractable back pain: Status: Resolved Code(s): M54.9 - Dorsalgia, unspecified Plan 1. 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 spinal stenosis most severe at L4-5 Medications at Discharge Home Medications acetaminophen 500 mg tablet (Tylenol Extra Strength) 1,000 mg PO Q6H PRN Back Pain 05/25/22 esomeprazole magnesium 20 mg capsule,delayed release (Nexium) 20 mg PO DAILY 05/25/22 fluoxetine 40 mg capsule (Prozac) 40 mg PO DAILY 05/25/22 ibuprofen 200 mg capsule 200 mg PO Q6H PRN Back Pain 05/25/22 oxycodone 5 mg tablet 5 mg PO Q4H PRN PRN Pain Score 4-6 7 days #20 tabs 06/04/22 tizanidine 2 mg tablet 4 mg PO Q8 #20 tabs 06/04/22 Hospital Course Operations - (Kyphoplasty L1 06/03/2022) Summary of Care Provided Minutes Spent on Discharge: 32 Hospital Course: This 86-year-old white female was seen in the emergency room at [facility] complaining of severe lower back pain, patient was unable to perform her ADLs due to this severe lower back pain. Patient been treated recently for a bursitis of her hip and was directed to go to the emergency room by her orthopedic physician for evaluation. Work-up in the ER included a CT of her abdomen and pelvis which showed the loss of height of L1 vertebrae, there were mild degree of increased markings in the. Pancreatic fat in the region of the head of the pancreas. Patient was admitted to [place] [address] for intractable back pain, she was seen in consultation by pain management and spinal surgery. MRCP was performed to delineate the pancreas, this did not show any pancreatic mass. Discussions were carried out with the patient by pain management and it was recommended the patient undergo an L1 kyphoplasty. Patient consented to procedure, on 06/03/2022, patient underwent an L1 kyphoplasty, she had good results and there was lessening of her pain. Patient was seen by PT and OT while she was in the hospital. On 06/04/2022, patient was seen and examined: On examination she appeared in good health and spirits, she does not appear to be in any distress. Vital signs as documented. Skin warm and dry and without overt rashes. Neck without JVD, thyroid appears normal, trachea is midline, neck is supple. Lungs clear, normal air movement was noted. Heart exam notable for regular rhythm, normal sounds and absence of murmurs, rubs or gallops. Abdomen unremarkable and without evidence of organomegaly, masses, or abdominal aortic enlargement, bowel sounds are present in all 4 quadrants, no abdominal tenderness was noted. Extremities nonedematous, no cyanosis was noted, no clubbing was noted. Neuro: Cranial nerves II through XII are grossly intact, no focal motor deficits were noted, sensation to light touch and pinprick is intact, motor exam 5/5 throughout. Psych: Patient is alert and oriented x3, she does not appear anxious or depressed, she does not appear agitated. Patient appears stable for discharge home on 06/04/2022. Weight / BMI Weight Weight: 80.4 kg Body Mass Index (BMI) 32.1 ABG / Lab / Microbiology Data Result Diagrams: 06/04/22 05:37 06/04/22 05:37 Laboratory: Laboratory Results - last 24 hr 06/04/22 05:37: WBC 11.5 H, RBC 3.72 L, Hgb 12.0, Hct 37.1, MCV 99.7 H, MCH 32.3 H, MCHC 32.3, RDW Std Deviation 44.6 H, RDW Coeff of Lucila 12.1, Plt Count 276, MPV 9.4, Immature Gran % (Auto) 1.000 H, Neut % (Auto) 75.1 H, Lymph % (Auto) 12.6 L, [place] % (Auto) 11.0 H, Eos % (Auto) 0.2, Baso % (Auto) 0.1, Absolute Neuts (auto) 8.6 H, Absolute Lymphs (auto) 1.45, Nucleated RBC % 0 06/04/22 05:37: Sodium 133 L, Potassium 4.2, Chloride 101, Carbon Dioxide 24.0, Anion Gap 8, BUN 15, Creatinine 0.69, Estim Creat Clear Calc 34.64, Est GFR (MDRD) Af Amer 104, Est GFR (MDRD) Non-Af 86, BUN/Creatinine Ratio 21.7 H, Glucose 88, Calcium 8.4 L D/C Instructions Discharge Diet: No restrictions Weight Bearing Status: Full weight bearing Meaningful Use Info Meaningful Use Diagnoses (Choose all that apply): None applicable Discharge Plan Admission Admit Date/Time: 05/30/22 11:27 Primary Reason for Your Visit: Compression fracture L1 Attending Provider: Vin Rg Primary Care Provider: Lelo Stark Consulting Providers: Hui Bynum ; Elvie Lutz ; Edenilson Kellogg ; Neville Wells ; Priyank Muller Instructions Additional Instructions / Restrictions: You may take Tylenol 650 mg with each oxycodone, not to exceed a total of 3000 mg of Tylenol per day Recommend you take vitamin D3 2000 units daily Recommend you follow-up with your PCP regarding osteoporosis treatment You may take ibuprofen intermittently if necessary-400 mg at a time a maximum of every 8 hours Discharge Orders/Prescriptions Prescriptions: New oxycodone 5 mg Tablet 5 mg PO Q4H PRN PRN (Reason: Pain Score 4-6) 7 Days Qty: 20 0RF tizanidine 2 mg Tablet 4 mg PO Q8 Qty: 20 0RF Rx Instructions: 1/2 to one every 8 hrs for muscle spasm Continued esomeprazole magnesium [Nexium] 20 mg capsule,delayed release(DR/EC) 20 mg PO DAILY fluoxetine [Prozac] 40 mg capsule 40 mg PO DAILY acetaminophen [Tylenol Extra Strength] 500 mg tablet 1,000 mg PO Q6H PRN (Reason: Back Pain) ibuprofen 200 mg capsule 200 mg PO Q6H PRN (Reason: Back Pain) Referrals / Follow Up: Neville Wells MD [Med Staff - Active Staff] - See Referral Note (1 month-call office for appointment) Lelo Stark MD [Primary Care Provider] - Within 2 Weeks Disposition Disposition (needs filled in before D/C Order can be placed): Home Health Service Charges/Coding Visit Charges Inpatient E&M: 12357 Disch Hosp
--- NOTE | 2022-06-05 08:31 | CASEMGMT ---
MAMTA OLIVEROS NOTE: Call received from [facility] to notify MAMTA OLIVEROS that pt declined [facility] services once she was home. Marisol PATEL RN, CM
== END 2022-06-04 12:52 | disposition home health service (06) | DRG 516 ==
LOC: ED 17:05 → MS3 17:21
PROVIDERS: Anesthesiology Pain Medicine; Internal Medicine; Admitting Provider Family Medicine; Emergency Provider Student in an Organized Health Care Education/Training Program; PCP Family Medicine; Visit Provider Internal Medicine
PROC: (CPT 22514; principal; 2022-06-03 12:45)
DX: M80.08XA Age-related osteoporosis with current pathological fracture, vertebra(e), initial encounter for fracture (principal); K86.2 Cyst of pancreas; K76.0 Fatty (change of) liver, not elsewhere classified; M48.061 Spinal stenosis, lumbar region without neurogenic claudication; K21.9 Gastro-esophageal reflux disease without esophagitis; E78.5 Hyperlipidemia, unspecified; K59.00 Constipation, unspecified; M51.36 Other intervertebral disc degeneration, lumbar region; F41.9 Anxiety disorder, unspecified; G89.29 Other chronic pain; E66.9 Obesity, unspecified; F32.A Depression, unspecified; R03.0 Elevated blood-pressure reading, without diagnosis of hypertension; Z60.2 Problems related to living alone; Z68.31 Body mass index [BMI] 31.0-31.9, adult; Z79.899 Other long term (current) drug therapy; Z87.891 Personal history of nicotine dependence
CPT/HCPCS: 22514; 36415; 72020; 72148; 74177; 74181; 76000; 80048; 80053; 80076; 81001; 83690; 85025; 85610; 93005; 96361; 96372; 96374; 96375; 96376; 97110; 97162; 97166; 97530; 97535; 99221; 99251; 99252; 99284; J7030; J7120; Q9967; A4216; G0378; G0463; J2405

== ENCOUNTER → 2022-07-23 | Outpatient (CLI) | payer MEDICARE, SELFPAY ==
--- NOTE | 2022-07-23 11:00 | RAD_ITS ---
STUDY: X-RAY - PELVIS AND LEFT HIP REASON FOR EXAM: Female, 86 years old. Pain. TECHNIQUE: 3 views of the pelvis and hip. COMPARISON: May 19, 2022. FINDINGS: There is a non-specific bowel gas pattern. Normal visualized soft tissue structures. Osteopenia. Normal bilateral iliac wings, sacroiliac joints and visualized sacrum. Normal bilateral superior and inferior pubic rami. Normal pubic symphysis. Normal bilateral ischial tuberosities. Stable mild arthrosis of both hips. RAD/HIP, UNI W/ Pelvis 2-3 Views IMPRESSION: Stable osteopenia with mild arthrosis of both hips. No acute abnormality, evidence of erosive changes/fusion. Electronically Signed: Skyler Verde, at 12:27 EST ,
== END | disposition home or self-care (01) ==
LOC: RAD 10:57
PROVIDERS: PCP Family Medicine; Referring Provider Anesthesiology Pain Medicine; Visit Provider Anesthesiology Pain Medicine
DX: M25.552 Pain in left hip (principal)
CPT/HCPCS: 73502

== ENCOUNTER → 2022-07-27 | Outpatient (CLI) | payer MEDICARE, SELFPAY ==
--- NOTE | 2022-07-27 14:51 | CT_ITS ---
STUDY: CT ABDOMEN AND PELVIS WITHOUT CONTRAST REASON FOR EXAM: Female, 86 years old. LLQ PAIN RADIATION DOSAGE (If Supplied By Facility): CTDIvol = ( 9.20 ) mGy, DLP = ( 450.67 ) mGycm TECHNIQUE: Transaxial images were obtained from the dome of the diaphragm to the symphysis pubis without oral contrast, and without intravenous contrast. Sagittal and coronal images were reconstructed. Individualized dose optimization techniques were used for this CT. COMPARISON: 05/28/2022 FINDINGS: Left more than right lung base subsegmental atelectasis. The visualized portions of the heart are within normal limits. Left liver cyst redemonstrated. Normal gallbladder and extrahepatic biliary system. Normal spleen. Normal pancreas. Normal bilateral adrenal glands. Normal right kidney. Normal left kidney. Normal visualized stomach. Normal small intestine. Normal colon. The appendix is visualized and appears normal. There is diffuse atherosclerotic calcification of the abdominal aorta, without a demonstrated aneurysm. Normal inferior vena cava. Normal retroperitoneum. Normal urinary bladder. There is absence of the uterus consistent with a prior hysterectomy. Normal abdominal wall. There are diffuse degenerative changes of the visualized lumbar spine. L1 fracture with vertebral cement. CT/Abdomen/Pel W ORAL Cont Only IMPRESSION: No acute abnormal finding in the abdomen or pelvis. Bilateral lung base atelectasis. Electronically Signed: Billy Lara MD at 17:47 EST ,
== END | disposition home or self-care (01) ==
LOC: CT 14:42
PROVIDERS: PCP Family Medicine; Referring Provider Family Medicine; Visit Provider Family Medicine
DX: R10.32 Left lower quadrant pain (principal)
CPT/HCPCS: 74176

== ENCOUNTER → 2022-11-04 | Outpatient (CLI) | payer MEDICARE, SELFPAY ==
[2022-11-04 15:39] LABS: Absolute Lymphocyte Count 2.23 X10^3/uL (0.83-4.51); Absolute Neutrophil Count 5.3 X10^3/uL (2.0-7.7); Basophil% 1.2 % (0-1); Eosinophil# 0.07 X10^3/uL; Eosinophils% 0.8 % (0-5); Hematocrit 41.7 % (37-47); Hemoglobin 13.4 g/dL (12.0-15.0); Lymphocyte # 2.23 X10^3/ul (0.83-4.51); Mean Corp Hgb Conc 32.1 g/dL (32-36); Mean Corpuscular Hgb 32.1 pg (27.0-32.0); Mean Platelet Vol. 9.7 fl (6.2-12.0); Monocyte# 0.81 X10^3/uL; Monocyte% 9.4 % (0-10); NRBC Flagged by Analyzer 0 % (0-5); Neutrophil # 5.32 X10^3/uL (2.7-7.7); Platelet Count 315 K/mm3 (150-450); RBC Distribution Width CV 11.5 % (11.6-14.6); RBC Distribution Width SD 42.4 fl (35.1-43.9); Red Blood Count 4.17 M/mm3 (4.2-5.4); White Blood Count 8.6 K/mm3 (4.4-11.0)
[2022-11-04 16:36] LABS: Thyroid Stim Hormone (TSH) 2.07 uIU/mL (0.358-3.74)
== END | disposition home or self-care (01) ==
LOC: MFPLAB 12:26
PROVIDERS: PCP Family Medicine; Referring Provider Family Medicine; Visit Provider Family Medicine
DX: L65.9 Nonscarring hair loss, unspecified (principal)
CPT/HCPCS: 36415; 82157; 82627; 84403; 84443; 85025; 82626

== ENCOUNTER → 2023-01-26 | Outpatient (CLI) | payer MEDICARE, SELFPAY ==
[2023-01-26 12:44] LABS: Erythrocyte Sedimentation Rate 18 mm/hr (0-30)
[2023-01-26 13:20] LABS: Vitamin B12 264 pg/mL (211-911)
[2023-01-26 13:35] LABS: ALB/GLOB Ratio 1.2 RATIO (0.9-2.4); AST(SGOT) 19 U/L (15-37); Alanine Aminotransfer ALT/SGPT 21 U/L (13-56); Albumin, Serum 3.8 g/dL (3.2-5.0); Alkaline Phosphatase 67 U/L (45-117); Anion Gap 11 (5-15); BUN 10 mg/dL (7-18); BUN/Creat Ratio 13.6 RATIO (10-20); Chloride 103 mmol/L (98-107); Creatinine, Serum 0.74 mg/dL (0.55-1.02); EST Glomerular Filtration Rate 80 mL/min (>60); Est Glom Filt Rate - Afr Amer 96 mL/min (>60); Globulin 3.3 g/dL (2.2-4.2); Glucose 89 mg/dL (74-106); Lipase 21 U/L (13-75); Potassium 3.9 mmol/L (3.5-5.1); Protein, Total 7.1 g/dL (6.4-8.2); Sodium Level 139 mmol/L (136-145)
== END | disposition home or self-care (01) ==
LOC: MTLAB 10:45 → MFPLAB 11:11
PROVIDERS: PCP Family Medicine; Referring Provider Family Medicine; Visit Provider Family Medicine
DX: F32.A Depression, unspecified (principal); R11.0 Nausea
CPT/HCPCS: 36415; 80053; 82607; 83690; 85652

== ENCOUNTER → 2023-02-15 | Outpatient (CLI) | payer MEDICARE, SELFPAY ==
--- NOTE | 2023-02-15 15:21 | BI_ITS ---
MAMMOGRAPHY - BILATERAL SCREENING REASON FOR EXAM: Female, 87 years old. Routine annual screening examination. PERTINENT HISTORY: Non-contributory. TECHNIQUE: Digital bilateral breast [place] (3D mammographic acquisition) in the CC and MLO projections. 2-D mediolateral oblique (MLO) and craniocaudad (CC) views of both breasts were obtained. CAD: Full Field Digital Mammography with Computer Added Detection was performed. COMPARISON: Comparison is made with prior study January 15, 2022 and September 27, 2020. FINDINGS: Breast Composition: There are scattered areas of fibroglandular density. There are no dominant masses or suspicious calcifications. Stable benign-appearing bilateral axillary lymph nodes. No other significant abnormalities are identified. There has been no significant change since the prior study. BI/SCRN MAMM (CAD)W/[place]ALINA BILAT IMPRESSION: Stable bilateral screening mammogram. Yearly follow-up mammogram recommended. (A) ASSESSMENT CATEGORY: BIRADS Category 2: Benign. A letter regarding these results will be sent to the patient by the facility within 30 days. Approximately 10% of breast cancers are not detected by mammography. A normal mammogram should not delay biopsy of a clinically suspicious abnormality. [id number] Electronically Signed: Kalyan Cha MD at 9:22 EDT ,
== END | disposition home or self-care (01) ==
LOC: OPBI 15:18
PROVIDERS: PCP Family Medicine; Referring Provider Family Medicine; Visit Provider Family Medicine
DX: Z12.31 Encounter for screening mammogram for malignant neoplasm of breast (principal)
CPT/HCPCS: 77063; 77067

== ENCOUNTER → 2024-05-02 | Outpatient (CLI) | payer MEDICARE, SELFPAY ==
[2024-05-02 18:40] LABS: AST(SGOT) 20 U/L (15-37); Alanine Aminotransfer ALT/SGPT 20 U/L (13-56); Albumin, Serum 3.7 g/dL (3.2-5.0); Alkaline Phosphatase 90 U/L (45-117); Cholesterol 221 mg/dL (200); Globulin 3.5 g/dL (2.2-4.2); High Density Lipoprotein 62 mg/dL; Protein, Total 7.2 g/dL (6.4-8.2); Triglycerides 207 mg/dL; Very Low Density Lipoprotein 41 mg/dL (5-40)
== END | disposition home or self-care (01) ==
LOC: MFPLAB 15:42
PROVIDERS: PCP Family Medicine; Visit Provider Family Medicine
DX: E78.5 Hyperlipidemia, unspecified (principal)
CPT/HCPCS: 36415; 80061; 80076; 84443

== ENCOUNTER → 2024-05-10 | Outpatient (CLI) | payer MEDICARE, SELFPAY ==
--- NOTE | 2024-05-10 10:38 | BI_ITS ---
MAMMOGRAPHY - BILATERAL SCREENING REASON FOR EXAM: Female, 88 years old. Routine annual screening examination. PERTINENT HISTORY: Non-contributory. TECHNIQUE: Digital bilateral breast catal[place] (3D mammographic acquisition) in the CC and MLO projections. 2-D mediolateral oblique (MLO) and craniocaudad (CC) views of both breasts were obtained. CAD: Full Field Digital Mammography with Computer Added Detection was performed. COMPARISON: Comparison is made with prior study dated February 15, 2023 and January 15, 2022. FINDINGS: Breast Composition: There are scattered areas of fibroglandular density. There are no dominant masses or suspicious calcifications. Stable bilateral fat containing axillary lymph nodes. No other significant abnormalities are identified. There has been no significant change since the prior study. BI/SCRN MAMM (CAD)W/CATALINA BILAT IMPRESSION: Stable bilateral screening mammogram. Yearly follow-up mammogram recommended. (A) ASSESSMENT CATEGORY: BIRADS Category 2: Benign. A letter regarding these results will be sent to the patient by the facility within 30 days. Approximately 10% of breast cancers are not detected by mammography. A normal mammogram should not delay biopsy of a clinically suspicious abnormality. [id number] Electronically Signed: Kalyan Cha MD at 11:54 EDT ,
== END | disposition home or self-care (01) ==
LOC: OPBI 10:38
PROVIDERS: PCP Family Medicine; Referring Provider Family Medicine; Visit Provider Family Medicine
DX: Z12.31 Encounter for screening mammogram for malignant neoplasm of breast (principal)
CPT/HCPCS: 77063; 77067

== ENCOUNTER 2024-11-29 14:30 | Outpatient (RCR) | payer MEDICARE, SELFPAY ==
--- NOTE | 2024-11-15 13:06 | HP.SP.EVAL ---
Visit History Visit Info Date of Eval: 11/15/24 Visit: [employer] Estimator: VIOLETTE History Attending Doctor: Referring Doctor: Reason for Referral: [email or web address] HERE Medical Diagnosis: Stroke; Aphasia Date of Onset of Diagnosis: 07-31-24 Previous speech therapy: Yes Results: Home Health speech therapy for expressive and receptive aphasia x8 weeks Other Relevant Medical History/Diagnoses/Surgery: Greater trochanteric bursitis of left hip Osteoarthritis of left hip Spondylolisthesis at L4-L5 level CVA Right TKA Medications related to this diagnosis: n/a Smoking Status: Never smoker Diagnosis Diagnosis: CVA Aphasia I69.320 Pain Is pain an issue with your current prescribed condition?: No Personal Preferred language: Czech Patient Allergies Allergies Allergies: Allergies No Known Allergies Allergy (Verified 03/03/23 07:19) BDAE-3 [place] Diagnostic Aphasia Examination BDAE-3 Administered: Yes BDAE-3: The BDAE-3 assesses communication in the areas of: conversational and expository speech, auditory comprehension, oral expression, reading and writing. Date: 11/15/24 Severity Level: 2 Level Detail: Conversation about familiar subjects is possible with help from listener. Frequent failures to convey the idea, but the patient shares the burden of communication. Rating Scale Profile of speech character Articulation Agility: 6 Detail: Facility at phoneme and syllable level ranges from 1 being unable to form speech sounds to 7 being never impaired Phrase length: 7+ Detail: Longest occasional uninterrupted word runs Grammatical form: 4 Detail: Variety of grammatical constructions; use of grammatical mophemes: 1=nosyntactic word groupings ranging to 7 being normal range of syntax; normal facility with grammatical words Melodic Line (Prosody): 7 Detail: 1=word b word or aprosodic speech ranging to 7 being normal speech shanta Paraphasia in running speech: 2 Detail: 1 present in evrey utterance ranging to 7 s absent Word finding relative to fluency: 2 Detail: 1 is fluent but empty speech ranging to 7 as output primarily content words Summary Profile Conversation/Speech Conversational/Expository Speech Percentile: 20 Simple social responses Percentile: 50 Summary Profile Auditory Comprehension Basic word discrimination Percentile: 15 Commands Percentile: 100 Complex Ideational Material Percentile: 50 Summary Profile Recitation Recitation automatized sequences Percentile: 0 Summary Profile Repitition Words Percentile: 30 Sentences Percentile: 0 Summary Profile Naming Responsive Naming Percentile: 35 [place] Naming Test Percentile: 20 Summary Profile Paraphasia Phonemic example- Matthew for [place]: 9 Verbal examples - for : 1 Neologistic - example planker for comb: 3 Multi-word: 0 BDAE-3 Comments See Comment: -: Continue BDAE-3 Short Form next session Reference: Neuro-QoL instrument Radiation Oncology Patient Plan Plan Plan: PATIENT REFERRED TO OUTPATIENT SPEECH THERAPY S/P COURSE OF HOME CARE ST D/T APHASIA S/P CVA. PATIENT PRESENTS WITH SEVERE FLUENT EXPRESSIVE APHASIA, IMPACTING SPOKEN AND WRITTEN SKILLS, WELL MODERATE DEFISITS IN AUDITORY COMPREHENSION AND SEVERE IMPAIRMENTS IN READING. SKILLED ST INDICATED TREATMENT OF SPEECH-LANGUAGE TO IMPROVE SPOKEN LANGUAGE EXPRESSION, READING COMPREHENSION, AND WRITTEN EXPRESSION VIA VERBAL AGILITY TRAINING, WORD RETRIEVAL DRILLS/STIMULATION, STRUCTURED LANGUAGE TASKS, AND PATIENT/CAREGIVER TRAINING IN STRATEGIES TO FACILITATE COMMUNICATION TO ALLOW PATIENT TO EFFECTIVELY AND EFFICIENTLY COMMUNICATE DAILY NEEDS RELATED TO PREFERENCE, ADLs, IADLs, MEDICAL CARE, AND SOCIALIZATION FOR HIGHEST QUALITY OF LIFE IN LEAST RESTRICTIVE ENVIRONMENT AND WITH ALL LISTENERS. Recommendations Treatment Warranted: Yes Treatment Warranted: Receptive/ Expressive Language Progress Prognosis: Good Frequency Frequency: 1x/Week Duration: 3 Months Visits in this POC: 12 Patient/Family Goal Patient/Family Goal: Improve communication Goals that are Established Determination:: Goals will be added/modified as deemed necessary and appropriate. Therapy will be discontinued when results of re-evaluation indicate therapy is no longer needed or lack of progress has been documented. Goal #1-5 Goal #1: Patient will complete confrontation naming task at 90% independently, without paraphasias, in order to increase ability to communicate basic wants and needs. bL 10% Goal #2: Patient will complete automated verbal sequencing tasks at 90% independently in order to increase ability to communicate basic wants and needs. (bL 0%) Goal #3: Patient will complete verbal agility and repetition tasks at the 1-2 syllable levels w/ 90% accuracy in order to increase ability to communicate basic wants and needs. (bL 1 syllable 45%) Goal #4: Patient will improve reading comprehension at the single letter and word level to 90% from field of 4 options to promote participation in IADLs. Goal #5: Patient will participate in ongoing assessment of language skills to complete aphasia profile for treatment. Goal #6-10 Goal #6: Patient will ID objects and pictures at 90% from 4 verbally presented options to promote participation in IADLs, and basic communication. Goal #7: Patient will improve auditory comprehension to 100% at the comparative-complex yes/no question levels to promote participation in IADLs, and basic communication. Education Patient has Indicated that the Following Identified Educational Needs: Inability to Read/Write and Hearing/Vision/Speech Impaired Other Educational Needs: Aphasia, [place] Patient Instruction Patient Education: Diagnosis, Treatment Plan, Goals and Home Exercise Program Person Taught: Patient, Family and Primary Caregiver Teaching Method: Discussion, Demonstration and Protocol Response to teaching: Return Demonstration, Verbalize Understanding, Reinforcement Needed and Has Prior Knowledge
== END 2024-11-29 19:00 | disposition home or self-care (01) ==
LOC: SP 14:30
PROVIDERS: PCP Family Medicine; Referring Provider Family Medicine; Visit Provider Family Medicine
DX: R13.0 Aphagia (principal); I69.320 Aphasia following cerebral infarction
CPT/HCPCS: 92507; 92523